=== PATIENT | female | born 1965 | race Caucasian/White ===

== ENCOUNTER 2016-08-10 15:02 | Emergency (ER) | payer BC ==
[2016-08-10] MEDS ORDERED: ACETAMINOPHEN 325 MG TABLET PO ONE (15:52)
--- NOTE | 2016-08-10 15:52 | ER Document Report ---
ED Medical Screen (RME) - General Stated Complaint: FEVER Notes: saturday onset ear pain, cough, congestion, fever, body aches decreased urine output HTN, HLD, DM, chronic back pain I have greeted and performed a rapid initial assessment of this patient. A comprehensive ED assessment and evaluation of the patient, analysis of test results and completion of the medical decision making process will be conducted by additional ED providers. TRAVEL OUTSIDE OF THE [place] IN LAST 30 DAYS: No - Related Data Allergies/Adverse Reactions: succinylcholine [Succinylcholine] Allergy (Severe, Verified 04/20/15 19:00) Coma Past Medical History - Past Medical History Cardiac Medical History: Reports: Hx Coronary Artery Disease - MED, Hx Hypertension Denies: Hx Heart Attack Pulmonary Medical History: Denies: Hx Asthma, Hx Bronchitis, Hx COPD, Hx Pneumonia Neurological Medical History: Denies: Hx Cerebrovascular Accident, Hx Seizures Endocrine Medical History: Reports: Hx Diabetes Mellitus Type 2 GI Medical History: Reports: Hx Hiatal Hernia Musculoskeltal Medical History: Reports Hx Arthritis Past Surgical History: Reports: Hx Cholecystectomy, Hx Hysterectomy - Immunizations Hx Diphtheria, Pertussis, Tetanus Vaccination: Yes Physical Exam - Vital signs Vitals: Temp Pulse Resp BP 102.4 F H 88 24 H 149/67 H 08/10/16 15:31 08/10/16 15:31 08/10/16 15:31 08/10/16 15:31 Course - Vital Signs Vital signs: Temp Pulse Resp BP Pulse Ox 102.4 F H 88 24 H 149/67 H 08/10/16 15:31 08/10/16 15:31 08/10/16 15:31 08/10/16 15:31
[2016-08-10 16:35] LABS: ABSOLUTE LYMPHOCYTES (AUTO) 1.2 10^3/uL (0.5-4.7); BASOPHILS % (AUTO) 0.2 % (0-2); EOSINOPHILS % (AUTO) 0.5 % (0-6); HEMATOCRIT 42.5 % (36.0-47.0); HEMOGLOBIN 14.4 g/dL (12.0-15.5); HGB HCT DIFFERENCE 0.7; LYMPHOCYTES % (AUTO) 11.9 % (13-45); MEAN CORPUSCULAR HEMOGLOBIN 31.1 pg (27.0-33.4); MEAN CORPUSCULAR HGB CONC 33.8 g/dL (32.0-36.0); MEAN CORPUSCULAR VOLUME 92 fl (80-97); MONOCYTES % (AUTO) 9.5 % (3-13); RED BLOOD COUNT 4.62 10^6/uL (3.72-5.28); RED CELL DISTRIBUTION WIDTH 14.7 % (11.5-14.0); SEGMENTED NEUTROPHILS % (AUTO) 77.9 % (42-78); WHITE BLOOD COUNT 10.2 10^3/uL (4.0-10.5)
[2016-08-10 16:46] LABS: ALANINE AMINOTRANSFERASE 32 U/L (9-52); ALBUMIN 4.1 g/dL (3.5-5.0); ALKALINE PHOSPHATASE 70 U/L (38-126); ANION GAP 12 (5-19); ASPARTATE AMINO TRANSFERASE 21 U/L (14-36); BILIRUBIN,TOTAL 0.5 mg/dL (0.2-1.3); BLOOD UREA NITROGEN 33 mg/dL (7-20); CALCIUM 9.9 mg/dL (8.4-10.2); CARBON DIOXIDE 28 mmol/L (22-30); CHLORIDE 99 mmol/L (98-107); CREATININE RESULT 1.11 mg/dL (0.52-1.25); GLUCOSE 127 mg/dL (75-110); POTASSIUM 4.2 mmol/L (3.6-5.0); SODIUM 138.6 mmol/L (137-145); TOTAL PROTEIN 7.1 g/dL (6.3-8.2)
[2016-08-10 17:11] LABS: APPEARANCE,URINE CLOUDY; BILIRUBIN,URINE NEGATIVE (NEGATIVE); GLUCOSE, URINE NEGATIVE (NEGATIVE); KETONES,URINE NEGATIVE (NEGATIVE); LEUKOCYTE ESTERASE,URINE NEGATIVE (NEGATIVE); NITRITE,URINE NEGATIVE (NEGATIVE); PROTEIN,URINE 100 mg/dL (NEGATIVE); URINE SPECIFIC GRAVITY 1.028; UROBILINOGEN,URINE NEGATIVE mg/dL (<2.0)
[2016-08-10] MEDS ORDERED: LIDOCAINE 1% INJ-PF (10 MG/ML) 30 ML SDV INFIL ONE (17:30)
[2016-08-10] MEDS ORDERED: CEFTRIAXONE INJ 500 MG VIAL IM ONE (17:30)
--- NOTE | 2016-08-10 17:34 | ER Document Report ---
ED Flu Like - General Chief Complaint: Flu Symptoms Stated Complaint: FEVER Time seen by provider: 17:31 Mode of Arrival: Ambulatory Information source: Patient, Friend TRAVEL OUTSIDE OF THE [place] IN LAST 30 DAYS: No - HPI Patient complains to provider of: fever/cough Onset: Other - pt. with recurrent fever the past several days up to 102 with cough productive of yellow sputum. Pt. continues to smoke. - Related Data Allergies/Adverse Reactions: succinylcholine [Succinylcholine] Allergy (Severe, Verified 08/10/16 15:49) Coma Past Medical History - General Information source: Patient - Social History Smoking Status: Current Every Day Smoker Cigarette use (# per day): Yes Chew tobacco use (# tins/day): No Smoking Education Provided: Yes Frequency of alcohol use: None Drug Abuse: None Family History: Reviewed & Not Pertinent Patient has suicidal ideation: No Patient has homicidal ideation: No - Past Medical History Cardiac Medical History: Reports: Hx Coronary Artery Disease - MED, Hx Hypertension Denies: Hx Heart Attack Pulmonary Medical History: Denies: Hx Asthma, Hx Bronchitis, Hx COPD, Hx Pneumonia Neurological Medical History: Denies: Hx Cerebrovascular Accident, Hx Seizures Endocrine Medical History: Reports: Hx Diabetes Mellitus Type 2 Renal/ Medical History: Denies: Hx Peritoneal Dialysis GI Medical History: Reports: Hx Hiatal Hernia Musculoskeltal Medical History: Reports Hx Arthritis Past Surgical History: Reports: Hx Cholecystectomy, Hx Hysterectomy - Immunizations Hx Diphtheria, Pertussis, Tetanus Vaccination: Yes Review of Systems - Review of Systems Constitutional: See HPI, Fever EENT: No symptoms reported Cardiovascular: No symptoms reported Respiratory: See HPI, Cough Gastrointestinal: No symptoms reported Physical Exam - Vital signs Vitals: Temp Pulse Resp BP 102.4 F H 88 24 H 149/67 H 08/10/16 15:31 08/10/16 15:31 08/10/16 15:31 08/10/16 15:31 - General General appearance: Appears well In distress: None - HEENT Head: Normocephalic Pharynx: Normal Neck: Normal - Respiratory Respiratory status: No respiratory distress Chest status: Nontender Breath sounds: Normal - Cardiovascular Rhythm: Regular Heart sounds: Normal auscultation - Abdominal Inspection: Normal Tenderness: Nontender Course - Re-evaluation Re-evalutation: 08/10/16 18:02 pt felt better after IM Rocephin -- Expressed desire to go home with friend 08/10/16 18:03 I have urged her to have a repeat CXR next week to make sure this infiltrate has cleared. She is agreeable to this - Vital Signs Vital signs: Temp Pulse Resp BP Pulse Ox 102.4 F H 88 24 H 149/67 H 08/10/16 15:31 08/10/16 15:31 08/10/16 15:31 08/10/16 15:31 - Laboratory Result Diagrams: 08/10/16 16:10 08/10/16 16:10 Laboratory results interpreted by me: 08/10/16 08/10/16 08/10/16 16:10 16:10 16:39 RDW 14.7 H Lymphocytes % 11.9 L BUN 33 H Est GFR (Non-Af Amer) 51 L Glucose 127 H Urine Protein 100 H Urine Blood SMALL H - Diagnostic Test Radiology reviewed: Reports reviewed - RUL infiltrate Discharge - Discharge Clinical Impression: Pneumonia Qualifiers: Pneumonia type: due to unspecified organism Laterality: right Lung location: upper lobe of lung Qualified Code(s): J18.1 - Lobar pneumonia, unspecified organism Condition: Stable Disposition: HOME, SELF-CARE Instructions: Acetaminophen Additional Instructions: rest, take meds as prescribed, return if worse Prescriptions: Azithromycin [Zithromax Tri-Jerson] 500 mg PO DAILY #1 pkg
[2016-08-10 18:25] VITALS: BP 148/69
== END 2016-08-10 18:25 | disposition home or self-care (01) ==
LOC: ER 15:02
DX: J18.1 Lobar pneumonia, unspecified organism (principal); R50.9 Fever, unspecified; R05 Cough; F17.210 Nicotine dependence, cigarettes, uncomplicated; I25.10 Atherosclerotic heart disease of native coronary artery without angina pectoris; I10 Essential (primary) hypertension; E11.9 Type 2 diabetes mellitus without complications
CPT/HCPCS: 99283; 36415; 85025; 80053; 81001; 87804; 71020; J3490; J0696

== ENCOUNTER 2016-08-23 19:18 | Emergency (ER) | payer BC ==
--- NOTE | 2016-08-23 21:16 | ER Document Report ---
ED Medical Screen (RME) - General Chief Complaint: Abdominal Pain Stated Complaint: RECTAL BLEEDING Mode of Arrival: Ambulatory Information source: Patient Notes: 51-year-old female presents to the emergency department complaining of mid upper abd pain radiating to bilateral mid abd over the last 3 days. Reports diagnosed and treated for pneumonia approximately 2 weeks ago. Also reports bleeding from hemorrhoids. Denies fever. I have greeted and performed a rapid initial assessment of this patient. A comprehensive ED assessment and evaluation of the patient, analysis of test results and completion of the medical decision making process will be conducted by additional ED providers. TRAVEL OUTSIDE OF THE [place] IN LAST 30 DAYS: No - Related Data Allergies/Adverse Reactions: succinylcholine [Succinylcholine] Allergy (Severe, Verified 08/10/16 15:49) Coma Past Medical History - Social History Chew tobacco use (# tins/day): No Frequency of alcohol use: None Drug Abuse: None - Past Medical History Cardiac Medical History: Reports: Hx Coronary Artery Disease - MED, Hx Hypertension Denies: Hx Heart Attack Pulmonary Medical History: Denies: Hx Asthma, Hx Bronchitis, Hx COPD, Hx Pneumonia Neurological Medical History: Denies: Hx Cerebrovascular Accident, Hx Seizures Endocrine Medical History: Reports: Hx Diabetes Mellitus Type 2 Renal/ Medical History: Denies: Hx Peritoneal Dialysis GI Medical History: Reports: Hx Hiatal Hernia Musculoskeltal Medical History: Reports Hx Arthritis Past Surgical History: Reports: Hx Cholecystectomy, Hx Hysterectomy - Immunizations Hx Diphtheria, Pertussis, Tetanus Vaccination: Yes Physical Exam - Vital signs Vitals: Temp Pulse Resp BP Pulse Ox 98.0 F 74 18 177/82 H 95 08/23/16 20:45 08/23/16 20:45 08/23/16 20:45 08/23/16 20:45 08/23/16 20:45 - General General appearance: Appears well, Alert In distress: None - Respiratory Respiratory status: No respiratory distress - Cardiovascular Rhythm: Regular Pulses: Normal: Radial Normal capillary refill: Yes Course - Vital Signs Vital signs: Temp Pulse Resp BP Pulse Ox 98.0 F 74 18 177/82 H 95 08/23/16 20:45 08/23/16 20:45 08/23/16 20:45 08/23/16 20:45 08/23/16 20:45
[2016-08-23 21:56] LABS: ABSOLUTE BASOPHILS # (AUTO) 0.1 10^3/uL (0.0-0.2); ABSOLUTE EOSINOPHILS # (AUTO) 0.2 10^3/uL (0.0-0.6); ABSOLUTE LYMPHOCYTES (AUTO) 2.1 10^3/uL (0.5-4.7); ABSOLUTE MONOCYTES (AUTO) 0.5 10^3/uL (0.1-1.4); ABSOLUTE NEUT (AUTO) 4.5 10^3/uL (1.7-8.2); EOSINOPHILS % (AUTO) 2.1 % (0-6); HEMATOCRIT 43.6 % (36.0-47.0); HEMOGLOBIN 14.6 g/dL (12.0-15.5); HGB HCT DIFFERENCE 0.2; LYMPHOCYTES % (AUTO) 28.9 % (13-45); MEAN CORPUSCULAR HEMOGLOBIN 30.8 pg (27.0-33.4); MEAN CORPUSCULAR HGB CONC 33.6 g/dL (32.0-36.0); MEAN CORPUSCULAR VOLUME 92 fl (80-97); MONOCYTES % (AUTO) 7.3 % (3-13); RED BLOOD COUNT 4.74 10^6/uL (3.72-5.28); RED CELL DISTRIBUTION WIDTH 14.8 % (11.5-14.0); SEGMENTED NEUTROPHILS % (AUTO) 60.7 % (42-78); WHITE BLOOD COUNT 7.4 10^3/uL (4.0-10.5)
[2016-08-23 22:07] LABS: APPEARANCE,URINE CLEAR; BILIRUBIN,URINE NEGATIVE (NEGATIVE); GLUCOSE, URINE NEGATIVE (NEGATIVE); KETONES,URINE NEGATIVE (NEGATIVE); LEUKOCYTE ESTERASE,URINE NEGATIVE (NEGATIVE); NITRITE,URINE NEGATIVE (NEGATIVE); PROTEIN,URINE NEGATIVE (NEGATIVE); URINE SPECIFIC GRAVITY 1.013; UROBILINOGEN,URINE NEGATIVE mg/dL (<2.0)
[2016-08-23 22:20] LABS: ALANINE AMINOTRANSFERASE 30 U/L (9-52); ALBUMIN 4.4 g/dL (3.5-5.0); ALKALINE PHOSPHATASE 78 U/L (38-126); ANION GAP 11 (5-19); ASPARTATE AMINO TRANSFERASE 29 U/L (14-36); BILIRUBIN,TOTAL 0.5 mg/dL (0.2-1.3); BLOOD UREA NITROGEN 24 mg/dL (7-20); CALCIUM 10.4 mg/dL (8.4-10.2); CARBON DIOXIDE 29 mmol/L (22-30); CHLORIDE 99 mmol/L (98-107); CREATINE KINASE 52 U/L (30-135); CREATININE RESULT 1.18 mg/dL (0.52-1.25); GLUCOSE 93 mg/dL (75-110); LIPASE 168.8 U/L (23-300); POTASSIUM 4.5 mmol/L (3.6-5.0); SODIUM 138.8 mmol/L (137-145); TOTAL PROTEIN 7.5 g/dL (6.3-8.2)
[2016-08-23 22:31] LABS: CREATINE KINASE MB 0.22 ng/mL (<4.55)
[2016-08-23 22:32] LABS: TROPONIN I < 0.012 ng/mL
[2016-08-24] MEDS ORDERED: ONDANSETRON 4 MG TAB.RAPDIS PO ONE (00:57)
[2016-08-24] MEDS ORDERED: OXYCODONE-ACETAMINOPHEN 5-325 MG TABLET PO ONE (00:57)
[2016-08-24] MEDS ORDERED: FAMOTIDINE 20 MG TABLET PO ONE (00:57)
[2016-08-24] MEDS ORDERED: SUCRALFATE 1 GM TABLET PO ONE (00:57)
--- NOTE | 2016-08-24 01:02 | ER Document Report ---
ED General - General Chief Complaint: Abdominal Pain Stated Complaint: RECTAL BLEEDING Mode of Arrival: Ambulatory Notes: Patient is a 51-year-old female that comes emergency department for chief complaint of pain in her upper abdomen for 1 week, she states the pain is a "burning pain" which is occasionally sharp, she states it is worse with eating and she has not been able to eat much over the past couple of days. She reports some nausea but denies vomiting. Patient states she has had a cholecystectomy, she was on recent antibiotics for pneumonia, she has had some diarrhea and this is bothering her hemorrhoids with occasional spots of blood in stool. She denies dark stools. She smokes. TRAVEL OUTSIDE OF THE [place] IN LAST 30 DAYS: No - Related Data Allergies/Adverse Reactions: succinylcholine [Succinylcholine] Allergy (Severe, Verified 08/10/16 15:49) Coma Past Medical History - General Information source: Patient - Social History Smoking Status: Current Every Day Smoker Chew tobacco use (# tins/day): No Frequency of alcohol use: None Drug Abuse: None Lives with: Family Family History: Reviewed & Not Pertinent Patient has suicidal ideation: No Patient has homicidal ideation: No - Past Medical History Cardiac Medical History: Reports: Hx Coronary Artery Disease - MED, Hx Hypertension Denies: Hx Heart Attack Pulmonary Medical History: Denies: Hx Asthma, Hx Bronchitis, Hx COPD, Hx Pneumonia Neurological Medical History: Denies: Hx Cerebrovascular Accident, Hx Seizures Endocrine Medical History: Reports: Hx Diabetes Mellitus Type 2 Renal/ Medical History: Denies: Hx Peritoneal Dialysis GI Medical History: Reports: Hx Hiatal Hernia Musculoskeltal Medical History: Reports Hx Arthritis Past Surgical History: Reports: Hx Cholecystectomy, Hx Hysterectomy - Immunizations Hx Diphtheria, Pertussis, Tetanus Vaccination: Yes Review of Systems - Review of Systems Constitutional: No symptoms reported EENT: No symptoms reported Cardiovascular: See HPI Respiratory: See HPI Gastrointestinal: See HPI Genitourinary: No symptoms reported Female Genitourinary: No symptoms reported Musculoskeletal: No symptoms reported Skin: No symptoms reported Hematologic/Lymphatic: No symptoms reported Neurological/Psychological: No symptoms reported Physical Exam - Vital signs Vitals: Temp Pulse Resp BP Pulse Ox 98.0 F 74 18 177/82 H 95 08/23/16 20:45 08/23/16 20:45 08/23/16 20:45 08/23/16 20:45 08/23/16 20:45 Interpretation: Normal - General General appearance: Appears well, Alert In distress: None - HEENT Head: Normocephalic, Atraumatic Eyes: Normal Pupils: PERRL - Respiratory Respiratory status: No respiratory distress Chest status: Nontender. No: Tender Breath sounds: Normal Chest palpation: Normal - Cardiovascular Rhythm: Regular Heart sounds: Normal auscultation Murmur: No - Abdominal Inspection: Normal Distension: No distension Bowel sounds: Normal Tenderness: Tender - Tender to the left upper quadrant and slightly tender in the epigastric area Organomegaly: No organomegaly - Back Back: Normal, Nontender. No: Tender - Extremities General upper extremity: Normal inspection, Nontender, Normal color, Normal ROM , Normal temperature General lower extremity: Normal inspection, Nontender, Normal color, Normal ROM , Normal temperature, Normal weight bearing. 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 EKG with no acute findings, cardiac enzymes negative. CBC, lipase unremarkable. Chemistry shows borderline renal functioning with normal creatinine. Patient does have a significant amount of left upper quadrant pain and some epigastric pain on examination, otherwise her abdomen is unremarkable, patient complaining of burning pain in her upper abdomen after eating, patient is a smoker. Concerning for worsening gastritis. Patient placed on medications for this, given specific instructions for treatment of this, given follow-up recommendations and return precautions. Patient states understanding and agreement. - Vital Signs Vital signs: Temp Pulse Resp BP Pulse Ox 98.0 F 76 16 105/89 H 96 08/24/16 01:49 08/24/16 01:49 08/24/16 01:49 08/24/16 01:49 08/24/16 01:49 - Laboratory Result Diagrams: 08/23/16 21:15 08/23/16 21:15 Laboratory results interpreted by me: 08/23/16 08/23/16 21:15 21:15 RDW 14.8 H BUN 24 H Est GFR ( Amer) 58 L Est GFR (Non-Af Amer) 48 L Calcium 10.4 H Discharge - Discharge Clinical Impression: Upper abdominal pain Condition: Stable Disposition: HOME, SELF-CARE Additional Instructions: Examination symptoms are concerning for inflammation of your stomach and upper intestines, please take the omeprazole and Carafate as directed, in addition to this take the pain medication if needed and stool softener with it. Avoid alcohol, smoking, high levels of caffeine, anti-inflammatories (such as ibuprofen, aspirin, etc), and avoid spicy food. Follow-up with your primary care within a week. Return immediately for any concerning worsening symptoms including severe abdominal pain, vomiting, vomiting blood, black stools, or any other concerning symptoms. Prescriptions: Docusate Sodium [Colace 100 mg Capsule] 100 mg PO DAILY #30 capsule Omeprazole 40 mg PO DAILY #30 capsule. Oxycodone HCl/Acetaminophen [Percocet 5-325 mg Tablet] 1 - 2 tab PO Q4H PRN #15 tablet PRN Reason: Sucralfate [Carafate 1 gm Tablet] 1 gm PO QID #40 tablet
[2016-08-24 02:12] VITALS: BP 105/89
--- NOTE | 2016-08-24 16:55 | EKG REPORT ---
SEVERITY:- NORMAL ECG - SINUS RHYTHM : Confirmed by: Chela Allen MD 24-Aug-2016 16:53:56
== END 2016-08-24 02:12 | disposition home or self-care (01) ==
LOC: ER 19:18
DX: R10.13 Epigastric pain (principal); R10.12 Left upper quadrant pain; J98.11 Atelectasis; R11.0 Nausea; R19.7 Diarrhea, unspecified; K92.1 Melena; I25.10 Atherosclerotic heart disease of native coronary artery without angina pectoris; I10 Essential (primary) hypertension; E11.9 Type 2 diabetes mellitus without complications; F17.200 Nicotine dependence, unspecified, uncomplicated; Z90.710 Acquired absence of both cervix and uterus; Z88.8 Allergy status to other drugs, medicaments and biological substances; Z90.49 Acquired absence of other specified parts of digestive tract; Z87.01 Personal history of pneumonia (recurrent)
CPT/HCPCS: 93005; 99284; 36415; 82553; 82550; 83690; 85025; 80053; 81001; 84484; 71020; 93010; S0119

== ENCOUNTER → 2016-08-31 | Outpatient (CLI) | payer BC | LOC: OD 10:25 | PROVIDERS: ATTEND Family Medicine | DX: J18.9 Pneumonia, unspecified organism (principal) | CPT/HCPCS: 71020 ==

== ENCOUNTER 2016-09-14 07:26 | Day surgery (SDC) | payer BC ==
[2016-09-14] MEDS ORDERED: NALOXONE HCL INJ/PF 0.4 MG/1 ML SDV ONE (07:56)
[2016-09-14] MEDS ORDERED: PROMETHAZINE HCL INJ 25 MG/1 ML VIAL ONE (07:56)
[2016-09-14] MEDS ORDERED: DIPHENHYDRAMINE HCL 50 MG/ML VIAL ONE (07:56)
[2016-09-14] MEDS ORDERED: ONDANSETRON HCL INJ/PF 4 MG/2 ML SDV ONE (07:56)
[2016-09-14] MEDS ORDERED: FENTANYL CITRATE INJ/PF 100 MCG/2 ML AMPUL ONE (07:57)
[2016-09-14] MEDS ORDERED: MIDAZOLAM 2 MG/2 ML INJ ONE (07:57)
[2016-09-14] MEDS ORDERED: EPINEPHRINE INJ 1 MG/10 ML DISP.SYRIN ONE (07:58)
[2016-09-14] MEDS ORDERED: FLUMAZENIL INJ 0.5 MG/5 ML VIAL IV ONE (07:58)
[2016-09-14] MEDS ORDERED: GLUCAGON,HUMAN RECOMB 1 MG INJ ONE (07:58)
[2016-09-14] MEDS: MIDAZOLAM 2 MG/2 ML INJ ONE ×2 (08:11→08:15)
--- NOTE | 2016-09-14 08:28 | Operative Report ---
Operative Report DATE OF SURGERY: 09/14/16 Operative Report: The risks benefits and alternatives of the procedure explained to the patient in detail and informed consent is obtained that GIF Olympus video scope was inserted into the patient's mouth and hypopharynx the esophagus is identified intubated and insufflated the scope was then advanced through the esophagus stomach and duodenum retroflexion maneuver is done the esophagus stomach and first and second portions of the duodenum examined PREOPERATIVE DIAGNOSIS: Epigastric pain POSTOPERATIVE DIAGNOSIS: Severe gastritis, biopsies obtained rule out Helicobacter pylori. Esophagitis versus Messina's; favor the latter, biopsies to confirm OPERATION: EGD with biopsy SURGEON: VIKRAM FRANCISCO ANESTHESIA: Moderate Sedation - 4 mg of Versed, 75 g of fentanyl. Conscious sedation monitoring time 15 minutes. TISSUE REMOVED OR ALTERED: Gastric specimen obtained COMPLICATIONS: None. ESTIMATED BLOOD LOSS: none. INTRAOPERATIVE FINDINGS: As noted above, patent esophagus. First and second portions of the duodenum normal PROCEDURE: Patient tolerated the procedure well. No immediate postprocedure complications are noted. Patient is discharged in good condition. Discharge date 09/14/2016. Discharge diet: Regular. Discharge activity: Regular. 2-3 week follow-up to discuss findings. Patient is instructed to call the office or proceed to the emergency room should there be any further problems or questions. We'll await on biopsies.
[2016-09-14 10:05] VITALS: BP 99/56
== END 2016-09-14 09:25 | disposition home or self-care (01) ==
LOC: END 07:26
PROVIDERS: ATTEND Internal Medicine Gastroenterology
PROC: 0DB68ZX Excision of Stomach, Via Natural or Artificial Opening Endoscopic, Diagnostic (ICD-10-PCS; 2016-09-14)
PROC: 0DB48ZX Excision of Esophagogastric Junction, Via Natural or Artificial Opening Endoscopic, Diagnostic (ICD-10-PCS; principal; 2016-09-14 08:00)
DX: K31.7 Polyp of stomach and duodenum (principal); E78.5 Hyperlipidemia, unspecified; E11.9 Type 2 diabetes mellitus without complications; I10 Essential (primary) hypertension; F17.210 Nicotine dependence, cigarettes, uncomplicated; Z79.4 Long term (current) use of insulin; Z79.899 Other long term (current) drug therapy; Z86.010 Personal history of colon polyps
CPT/HCPCS: 43239; 82962; 88342 ×2; 88305 ×2; J2250; J3010; J0171; J1200; J1610; J2310; J2405; J2550; J3490

== ENCOUNTER 2016-09-28 11:00 | Day surgery (SDC) | payer BC ==
[2016-09-28] MEDS ORDERED: DIPHENHYDRAMINE HCL 50 MG/ML VIAL ONE (11:23)
[2016-09-28] MEDS ORDERED: NALOXONE HCL INJ/PF 0.4 MG/1 ML SDV ONE (11:23)
[2016-09-28] MEDS ORDERED: ONDANSETRON HCL INJ/PF 4 MG/2 ML SDV ONE (11:23)
[2016-09-28] MEDS ORDERED: PROMETHAZINE HCL INJ 25 MG/1 ML VIAL ONE (11:23)
[2016-09-28] MEDS ORDERED: GLUCAGON,HUMAN RECOMB 1 MG INJ ONE (11:24)
[2016-09-28] MEDS ORDERED: EPINEPHRINE INJ 1 MG/10 ML DISP.SYRIN ONE (11:24)
[2016-09-28] MEDS ORDERED: FLUMAZENIL INJ 0.5 MG/5 ML VIAL IV ONE (11:24)
[2016-09-28] MEDS: MIDAZOLAM 2 MG/2 ML INJ ONE ×3 (11:53→12:04)
[2016-09-28] MEDS: FENTANYL CITRATE INJ/PF 100 MCG/2 ML AMPUL ONE ×2 (11:55→12:00)
--- NOTE | 2016-09-28 12:06 | Operative Report ---
Operative Report DATE OF SURGERY: 09/28/16 Operative Report: The risks benefits and alternatives of the procedure explained to the patient in detail and informed consent is obtained that GIF Olympus video scope was inserted into the patient's mouth and hypopharynx the esophagus is identified intubated and insufflated the scope was then advanced through the esophagus stomach and duodenum retroflexion maneuver is done the esophagus stomach and first and second portions of the duodenum examined PREOPERATIVE DIAGNOSIS: Messina's esophagus POSTOPERATIVE DIAGNOSIS: Messina's esophagus status post ablation. Gastritis OPERATION: EGD with ablation SURGEON: VIKRAM FRANCISCO ANESTHESIA: Moderate Sedation - 6 mg of Versed, 100 g of fentanyl. Conscious sedation monitoring 30 minutes TISSUE REMOVED OR ALTERED: None. COMPLICATIONS: None. ESTIMATED BLOOD LOSS: none. INTRAOPERATIVE FINDINGS: Messina's esophagus is noted. Gastritis is noted. PROCEDURE: Patient tolerated the procedure well. No immediate postprocedure complications are noted. Patient is discharged in good condition. Discharge date 09/28/2016. Discharge diet: Regular. Discharge activity: Regular. 2-3 week follow-up to discuss findings. Patient is instructed to call the office or proceed to the emergency room should there be any further problems or questions.
[2016-09-28 13:29] VITALS: BP 117/68
== END 2016-09-28 13:30 | disposition home or self-care (01) ==
LOC: END 11:00
PROVIDERS: ATTEND Internal Medicine Gastroenterology
PROC: 0D558ZZ Destruction of Esophagus, Via Natural or Artificial Opening Endoscopic (ICD-10-PCS; principal; 2016-09-28 12:00)
DX: K22.719 Barrett's esophagus with dysplasia, unspecified (principal); K29.30 Chronic superficial gastritis without bleeding; K59.09 Other constipation; E78.2 Mixed hyperlipidemia; E11.9 Type 2 diabetes mellitus without complications; I10 Essential (primary) hypertension; F17.210 Nicotine dependence, cigarettes, uncomplicated; Z79.84 Long term (current) use of oral hypoglycemic drugs; Z79.899 Other long term (current) drug therapy
CPT/HCPCS: 43270; 82962; J2250; J0171; J3010; J1200; J1610; J2310; J2405; J2550; J3490

== ENCOUNTER → 2016-10-30 | Outpatient (CLI) | payer BC | LOC: RAD 12:10 | PROVIDERS: ATTEND Pain Medicine Pain Medicine | DX: M48.06 Spinal stenosis, lumbar region (principal) | CPT/HCPCS: 72148 ==

== ENCOUNTER → 2016-12-10 | Outpatient (CLI) | payer BC ==
--- NOTE | 2016-12-10 16:34 | RADIOLOGY REPORT (SQ) ---
EXAM DESCRIPTION: CT LUMBAR SPINE WITHOUT COMPLETED DATE/TIME: 12/10/2016 1:06 pm REASON FOR STUDY: LUMBAR RADICULOPATHY M54.16 RADICULOPATHY, LUMBAR REGION COMPARISON: MRI dated 10/30/2016 and 01/27/2016. TECHNIQUE: Axial images acquired through the lumbar spine without intravenous contrast. Images revi ewed with lung, soft tissue and bone windows. Reconstructed coronal and sagittal MPR images reviewed . All images stored on PACS. All CT scanners at this facility use dose modulation, iterative reconstruction, and/or weight based d osing when appropriate to reduce radiation dose to as low as reasonably achievable (ALARA). [facility]: Dose Right [facility]: CareDose [facility]: Dose Right [facility]: Teradose 4D [facility]: [employer] RADIATION DOSE: Up-to-date CT equipment and radiation dose reduction techniques were employed. CTDIv ol: 23.8 mGy. DLP: 676 mGy-cm. mGy. LIMITATIONS: None. FINDINGS: SEGMENTATION: Normal. No transitional anatomy. ALIGNMENT: Normal. VERTEBRAL BODIES: No fractures. No dislocation. No acute findings. DISCS: Prominent disc space narrowing with vacuum change and endplate sclerosis at L3-L4. Mild diffu se posterior annular bulge and osteophytes and facet arthropathy resulting in mild-moderate spinal st enosis. Fusion at the L4-L5 disc level. Disc space narrowing with vacuum change at L5-S1. Mild dif fuse posterior bulge and osteophytes with mild facet arthropathy resulting in mild spinal stenosis. PEDICLES, TRANSVERSE PROCESSES: No fractures. No dislocation. No acute findings. FACETS, POSTERIOR ELEMENTS: Laminectomy changes at L4-L5. HARDWARE: Posterior hardware at L4 and L5. VISUALIZED RIBS: No fractures. SOFT TISSUES: No significant or acute finding in adjacent soft tissues. OTHER: Bony defect in the posterior right iliac bone. This appears chronic and may be postoperative. IMPRESSION: 1. SURGICAL CHANGES AT L4-L5 WITH DISC FUSION, POSTERIOR HARDWARE AND LAMINECTOMY. 2. DEGENERATIVE DISC DISEASE AT L3-L4 AND L5-S1 DESCRIBED ABOVE. FINDINGS ARE MORE PRONOUNCED AT L3-L4. TECHNICAL DOCUMENTATION: JOB ID: [id number] Quality ID # [id number]: Final reports with documentation of one or more dose reduction techniques (e.g., Au tomated exposure control, adjustment of the mA and/or kV according to patient size, use of iterative reconstruction technique) 2010 [employer]- All Rights Reserved
--- NOTE | 2016-12-10 16:36 | RADIOLOGY REPORT (SQ) ---
EXAM DESCRIPTION: L SPINE W/FLEX/EXT COMPLETED DATE/TIME: 12/10/2016 1:35 pm REASON FOR STUDY: LUMBAR RADICULOPATHY M54.16 RADICULOPATHY, LUMBAR REGION COMPARISON: 12/05/2012. NUMBER OF VIEWS: Four view. TECHNIQUE: AP and lateral views of the lumbar spine with flexion and extension. LIMITATIONS: None. FINDINGS: MINERALIZATION: Normal. SEGMENTATION: Normal. No transitional anatomy. ALIGNMENT: S-shaped scoliosis. FLEXION/EXTENSION: No instability. VERTEBRAE: Maintained height. No fracture or worrisome bone lesion. DISCS: Marked disc space narrowing with endplate sclerosis and osteophytes at L3-L4. Moderate disc s pace narrowing at L5-S1. POSTERIOR ELEMENTS: Laminectomy changes at L4-L 5. Otherwise intact. HARDWARE: Disc hardware and posterior hardware at L4-L5. OTHER: No other significant finding. IMPRESSION: SCOLIOSIS WITH CHRONIC DEGENERATIVE DISC DISEASE DESCRIBED. SURGICAL CHANGES AT L4-L 5. NO INSTABILITY ON FLEXION/EXTENSION. TECHNICAL DOCUMENTATION: JOB ID: [id number]- All Rights Reserved
== END ==
LOC: RAD 12:40
PROVIDERS: ATTEND Specialist
DX: M51.16 Intervertebral disc disorders with radiculopathy, lumbar region (principal)
CPT/HCPCS: 72114; 72131

== ENCOUNTER 2017-01-07 09:56 | Day surgery (SDC) | payer MEDICARE, BC ==
[~2017-01-07 09:56] MED LIST: PROPOFOL INJ 200 MG/20 ML VIAL IV ONE
[2017-01-07] MEDS ORDERED: SIMETHICONE 80 MG TAB.CHEW PO ONE (11:33)
[2017-01-07] MEDS ORDERED: SIMETHICONE 80 MG TAB.CHEW ONE (11:34)
[2017-01-07 11:59] VITALS: BP 110/50
--- NOTE | 2017-01-07 13:14 | Operative Report ---
Operative Report DATE OF SURGERY: 01/07/17 Operative Report: The risks, benefits and alternatives of the procedure including risks of bleeding, perforation requiring surgery are explained to the patient detail and informed consent is obtained. Patient was brought back to the endoscopy suite and placed in the left, lateral decubital position. Timeout was called. Propofol medications administered. A rectal examination was done which did not reveal any masses, tears or fissures. An Olympus videoscope was inserted into the patient's rectum. The scope was then carefully advanced all the way to the cecum. The cecum was identified by the usual anatomical landmarks including the ileocecal valve, and the appendiceal office. Photodocumentation was obtained. Prep is good. The scope was then pulled back via the various segments of the colon including the ascending colon, hepatic flexure, transverse colon, splenic flexure, descending colon and finding to the rectosigmoid colon. Retroflexion maneuver was performed. PREOPERATIVE DIAGNOSIS: Abdominal pain, change in bowel habits POSTOPERATIVE DIAGNOSIS: Polyp that is removed via snare polypectomy. It is somewhat of a sessile polyp and so no tissue could be obtained. It appears to be mostly ablated. Right side inflammation status post biopsy rule out lymphocytic, microscopic, collagenous colitis. Diverticulosis. Internal hemorrhoids OPERATION: Colonoscopy with snare polypectomy. Colonoscopy with biopsy SURGEON: VIKRAM FRANCISCO ANESTHESIA: LMAC TISSUE REMOVED OR ALTERED: As described above. COMPLICATIONS: None. ESTIMATED BLOOD LOSS: None. INTRAOPERATIVE FINDINGS: As described above. PROCEDURE: Patient tolerated the procedure well. No immediate postprocedure complications are noted. Patient discharged in good condition. Discharge date 01/07/2017. Discharge diet: Regular. Discharge activity: Regular. 2-3 week follow-up to discuss findings. Patient is instructed to call the office or proceed to the emergency room should there be any further problems or questions. We will wait on biopsies. 3-5 year surveillance colonoscopy.
== END 2017-01-07 11:54 | disposition home or self-care (01) ==
LOC: END 09:56
PROVIDERS: ATTEND Internal Medicine Gastroenterology
PROC: 0DBF8ZX Excision of Right Large Intestine, Via Natural or Artificial Opening Endoscopic, Diagnostic (ICD-10-PCS; principal; 2017-01-07 12:00)
PROC: 0DBJ8ZX Excision of Appendix, Via Natural or Artificial Opening Endoscopic, Diagnostic (ICD-10-PCS; 2017-01-07 12:00)
DX: K63.5 Polyp of colon (principal); K57.30 Diverticulosis of large intestine without perforation or abscess without bleeding; K52.9 Noninfective gastroenteritis and colitis, unspecified; K64.8 Other hemorrhoids; E78.2 Mixed hyperlipidemia; I10 Essential (primary) hypertension; F17.210 Nicotine dependence, cigarettes, uncomplicated; Z79.899 Other long term (current) drug therapy; Z79.84 Long term (current) use of oral hypoglycemic drugs; Z79.1 Long term (current) use of non-steroidal anti-inflammatories (NSAID)
CPT/HCPCS: 45380; 45385; 82962; 88305 ×2; A9270; J2704; 810

== ENCOUNTER → 2017-01-11 | Outpatient (CLI) | payer MEDICARE, BC ==
--- NOTE | 2017-01-11 13:58 | WOMENS IMAGING REPORT ---
EXAM DESCRIPTION: BILAT SCREENING MAMMO W/CAD COMPLETED DATE/TIME: 01/11/2017 12:40 pm REASON FOR STUDY: ROUTINE SCREENING ; Z12.31 Z12.31 ENCNTR SCREEN MAMMOGRAM FOR MALIGNANT NEOPLASM OF MACK COMPARISON: None available. TECHNIQUE: Standard craniocaudal and mediolateral oblique views of each breast recorded using [employer] acquisition. LIMITATIONS: None. FINDINGS: No masses, calcifications or architectural distortion. No areas of suspicion. Read with the assistance of CAD. .[facility] - R2 Cenova Version 1.3 .[facility] - R2 Cenova Version 1.3 .[facility] - R2 Cenova Version 2.4 .[facility] - R2 Cenova Version 2.4 .[facility] - R2 Panel Machine Operator Version 9.2 IMPRESSION: NORMAL MAMMOGRAM. BIRADS 1. BREAST DENSITY: b. There are scattered areas of fibroglandular density. BIRAD: 1 NEGATIVE RECOMMENDATION: ROUTINE SCREENING COMMENT: The patient has been notified of the results by letter per SA requirements. Additional no tification policies are in place for contacting patient with suspicious or incomplete findings. Quality ID #[id number]: The [employer] recommends an annual screening mammogram for women aged 40 years or over. This facility utilizes a reminder system to ensure that all patients receive reminder letters, and/or direct phone calls for appointments. This includes reminders for routine scr eening mammograms, diagnostic mammograms, or other Breast Imaging Interventions when appropriate. Th is patient will be placed in the appropriate reminder system. The [employer] (ACR) has developed recommendations for screening MRI of the breast s in certain patient populations, to be used in conjunction with mammography. Breast MRI surveillanc e may be appropriate for women with more than 20% lifetime risk of developing breast cancer as deter mined by genetic testing, significant family history of the disease, or history of mantle radiation f or Hodgkins Disease. ACR Practice Guidelines 2008. TECHNICAL DOCUMENTATION: FINDING NUMBER: (1) ASSESSMENT: (1) JOB ID: [id number] [employer]- All Rights Reserved
== END ==
LOC: WI 11:10
PROVIDERS: ATTEND Internal Medicine Gastroenterology
DX: Z12.31 Encounter for screening mammogram for malignant neoplasm of breast (principal)
CPT/HCPCS: 77067; G0202

== ENCOUNTER → 2017-02-22 | Outpatient (CLI) | payer MEDICARE, BC ==
--- NOTE | 2017-02-22 16:44 | RADIOLOGY REPORT (SQ) ---
EXAM DESCRIPTION: CERV SP 6 OR MORE COMPLETED DATE/TIME: 02/22/2017 4:09 pm REASON FOR STUDY: CERVICAL RADICULOPATHY COMPARISON: None. TECHNIQUE: AP, odontoid, oblique, lateral views in neutral flexion and extension cervical spine. Im ages saved to PACs. LIMITATIONS: None. FINDINGS: There has been prior ACD from C3-4 through C6-7. There is grade 2 spondylolisthesis C7-T1 which reduces by at 2-3 mm in the extended position. Instrumentation is intact. IMPRESSION: Mild malalignment and instability C7-T1 status post ACD C3-4 through C6-7. TECHNICAL DOCUMENTATION: JOB ID: [id number] [employer]- All Rights Reserved
--- NOTE | 2017-02-23 22:50 | RADIOLOGY REPORT (SQ) ---
EXAM DESCRIPTION: MRI CERVICAL SPINE WITHOUT COMPLETED DATE/TIME: 02/22/2017 4:58 pm REASON FOR STUDY: CERVICAL RADICULOPATHY M54.12 RADICULOPATHY, CERVICAL REGION COMPARISON: Radiographs 02/22/2017. TECHNIQUE: Sagittal and Axial imaging includes T1, T2, STIR and gradient echo sequences. LIMITATIONS: This study is significantly degraded by extensive fixation artifact, anterior fusion sp anning C3 through C7. Essentially replacing the bone of the anterior column. Resulting metallic art ifact obscures regional soft tissues and neural foramina. FINDINGS: ALIGNMENT: Normal. VERTEBRAE: Obscured by artifact. BONE MARROW: Obscured by artifact at the levels of fixation. Normal above and below this. DISCS: Obscured by artifact. Disc fixation devices throughout the levels of fusion. Disc space narr owing at C7-T1. HARDWARE: As above. CORD AND BASE OF BRAIN: Cord signal looks normal. Skullbase structures are grossly intact. SOFT TISSUES: No soft tissue masses. CENTRAL STENOSIS: None suggested. UPPER THORACIC: Incompletely imaged. No significant spinal stenosis or exit foraminal stenosis. OTHER: No other significant finding. IMPRESSION: Limiting instrumentation artifact. No gross spinal malalignment, cord compression or ov ert central stenosis. TECHNICAL DOCUMENTATION: JOB ID: [id number] [employer]- All Rights Reserved
== END ==
LOC: RAD 15:31
PROVIDERS: ATTEND Pain Medicine Pain Medicine
DX: M54.12 Radiculopathy, cervical region (principal)
CPT/HCPCS: 72050; 72141

== ENCOUNTER 2017-06-20 19:48 | Emergency (ER) | payer BC, MEDICARE ==
--- NOTE | 2017-06-20 20:40 | ER Document Report ---
ED Medical Screen (RME) - General Chief Complaint: Breast Problem Stated Complaint: BREAST PAIN Time Seen by Provider: 06/20/17 20:35 Notes: 52-year-old female coming from the top of her left breast towards the area underneath her arm and towards her back. She states the area started out as a pustule, she popped it, she states it came back and she popped it again, then several days later this started. She states she was running fevers all day yesterday. She denies having diabetes but states she takes metformin. She denies any other complaints. TRAVEL OUTSIDE OF THE [place] IN LAST 30 DAYS: No - Related Data Allergies/Adverse Reactions: succinylcholine [Succinylcholine] Allergy (Severe, Verified 01/07/17 10:06) Coma latex Allergy (Intermediate, Verified 01/07/17 10:06) Skin Redness Past Medical History - Past Medical History Cardiac Medical History: Reports: Hx Hypertension Denies: Hx Coronary Artery Disease, Hx Heart Attack Pulmonary Medical History: Denies: Hx Asthma, Hx Bronchitis, Hx COPD, Hx Pneumonia Neurological Medical History: Denies: Hx Cerebrovascular Accident, Hx Seizures Endocrine Medical History: Reports: Hx Diabetes Mellitus Type 2 Renal/ Medical History: Denies: Hx Peritoneal Dialysis GI Medical History: Reports: Hx Hiatal Hernia Musculoskeltal Medical History: Denies Hx Arthritis Past Surgical History: Reports: Hx Cholecystectomy, Hx Hysterectomy - Immunizations Hx Diphtheria, Pertussis, Tetanus Vaccination: Yes Physical Exam - Vital signs Vitals: Temp Pulse Resp BP Pulse Ox 99.5 F 85 20 136/62 H 95 06/20/17 20:06 06/20/17 20:06 06/20/17 20:06 06/20/17 20:06 06/20/17 20:06 - Skin Skin irregularity: other - Tenderness, heat, and erythema to a wide area including the top of the left breast and extending underneath the arm and towards the side/back. Questionable area of central fluctuance, no obvious induration, no obvious lymphadenopathy. Course - Vital Signs Vital signs: Temp Pulse Resp BP Pulse Ox 99.5 F 85 20 136/62 H 95 06/20/17 20:06 06/20/17 20:06 06/20/17 20:06 06/20/17 20:06 06/20/17 20:06
[2017-06-20 21:01] LABS: ABSOLUTE BASOPHILS # (AUTO) 0.1 10^3/uL (0.0-0.2); ABSOLUTE EOSINOPHILS # (AUTO) 0.1 10^3/uL (0.0-0.6); ABSOLUTE LYMPHOCYTES (AUTO) 1.5 10^3/uL (0.5-4.7); ABSOLUTE MONOCYTES (AUTO) 0.8 10^3/uL (0.1-1.4); ABSOLUTE NEUT (AUTO) 8.3 10^3/uL (1.7-8.2); EOSINOPHILS % (AUTO) 0.6 % (0-6); HEMATOCRIT 41.7 % (36.0-47.0); HEMOGLOBIN 14.1 g/dL (12.0-15.5); HGB HCT DIFFERENCE 0.6; LYMPHOCYTES % (AUTO) 14.1 % (13-45); MEAN CORPUSCULAR HEMOGLOBIN 31.2 pg (27.0-33.4); MEAN CORPUSCULAR HGB CONC 33.9 g/dL (32.0-36.0); MEAN CORPUSCULAR VOLUME 92 fl (80-97); MONOCYTES % (AUTO) 7.4 % (3-13); RED BLOOD COUNT 4.53 10^6/uL (3.72-5.28); SEGMENTED NEUTROPHILS % (AUTO) 76.9 % (42-78); WHITE BLOOD COUNT 10.7 10^3/uL (4.0-10.5)
[2017-06-20] MEDS ORDERED: CEPHALEXIN 500 MG CAPSULE PO ONE (21:06)
[2017-06-20] MEDS ORDERED: SULFAMETHOXAZOLE/TRIMETHOPRIM 800-160 MG TABLET PO ONE (21:06)
--- NOTE | 2017-06-20 21:11 | ER Document Report ---
ED General - General Chief Complaint: Breast Problem Stated Complaint: BREAST PAIN Time Seen by Provider: 06/20/17 20:35 Notes: The 2-year-old female presents with painful red lesion on her left breast that started several days ago and has been getting larger since. Complains of stinging severe pain constant. She is on chronic pain management for back pain. She has subjective fevers but is not febrile here. She has borderline diabetes on metformin. Positive armpit pain. Triage labs were ordered. TRAVEL OUTSIDE OF THE [place] IN LAST 30 DAYS: No - Related Data Allergies/Adverse Reactions: succinylcholine [Succinylcholine] Allergy (Severe, Verified 01/07/17 10:06) Coma latex Allergy (Intermediate, Verified 01/07/17 10:06) Skin Redness Past Medical History - Social History Smoking Status: Current Every Day Smoker Frequency of alcohol use: None Drug Abuse: None Family History: Reviewed & Not Pertinent Patient has suicidal ideation: No Patient has homicidal ideation: No - Past Medical History Cardiac Medical History: Reports: Hx Hypertension Denies: Hx Coronary Artery Disease, Hx Heart Attack Pulmonary Medical History: Denies: Hx Asthma, Hx Bronchitis, Hx COPD, Hx Pneumonia Neurological Medical History: Denies: Hx Cerebrovascular Accident, Hx Seizures Endocrine Medical History: Reports: Hx Diabetes Mellitus Type 2 Renal/ Medical History: Denies: Hx Peritoneal Dialysis GI Medical History: Reports: Hx Hiatal Hernia Musculoskeltal Medical History: Denies Hx Arthritis Past Surgical History: Reports: Hx Cholecystectomy, Hx Hysterectomy - Immunizations Hx Diphtheria, Pertussis, Tetanus Vaccination: Yes Review of Systems - Review of Systems Notes: REVIEW OF SYSTEMS GEN: Fevers ENT: Denies sore throat, nasal discharge, ear pain EYES: Denies blurry vision, eye pain, discharge CV: Denies chest pain, palpitations, edema RESP: Denies cough, shortness of breath, wheezing GI: Denies abdominal pain, nausea, vomiting, diarrhea MSK: Back pain SKIN: Rash on left breast LYMPH: Denies swollen glands/lymph nodes. Positive left axilla pain NEURO: Denies headache, focal weakness or numbness, dizziness PSYCH: Denies depression, suicidal or homicidal ideation PHYSICAL EXAMINATION General: No acute distress, well-nourished Head: Atraumatic, normocephalic ENT: Mouth normal, oropharynx moist, no exudates or tonsillar enlargement Eyes: Conjunctiva normal, pupils equal, lids normal Neck: No JVD, supple, no guarding CVS: Normal rate, regular rhythm, no murmurs Resp: No resp distress, equal and normal breath sounds bilaterally GI: Nondistended, soft, no tenderness to palpation, no rebound or guarding Ext: No deformities, no edema, normal range of motion in upper and lower ext Back: No CVA or midline TTP Skin: 20 cm x 15 cm area of erythema without induration or fluctuance on the left breast extending toward the axilla. No drainage. No bullae or necrosis. Lymphatic: No left axillary lymphadenopathy. No streaking. Neuro: Awake, alert. Face symmetric. GCS 15. Physical Exam - Vital signs Vitals: Temp Pulse Resp BP Pulse Ox 99.5 F 85 20 136/62 H 95 06/20/17 20:06 06/20/17 20:06 06/20/17 20:06 06/20/17 20:06 06/20/17 20:06 Course - Re-evaluation Re-evalutation: 06/20/17 21:08 Breast cellulitis with no abscess. Minimal leukocytosis. I did not think labs were necessary but they were ordered. No signs of sepsis. Oral antibiotics and follow-up. Counseled on possibility of abscess development and future need for incision and drainage. I have discussed with the patient there likely diagnosis, aftercare plan, follow-up plans and my usual and customary return precautions. They verbalized understanding of this. - Vital Signs Vital signs: Temp Pulse Resp BP Pulse Ox 99.5 F 85 20 136/62 H 95 06/20/17 20:06 06/20/17 20:06 06/20/17 20:06 06/20/17 20:06 06/20/17 20:06 - Laboratory Result Diagrams: 06/20/17 20:52 06/20/17 20:52 Laboratory results interpreted by me: 06/20/17 20:52 WBC 10.7 H RDW 16.0 H Absolute Neutrophils 8.3 H Discharge - Discharge Clinical Impression: Cellulitis of left breast Condition: Good Disposition: HOME, SELF-CARE Instructions: Cellulitis ([facility]) Additional Instructions: If the redness does not decrease in 2 days or you develop drainage or increased swelling suggestive of pus, please return to the ER as you may then require incision and drainage. Please take antibiotics exactly as prescribed and discussed with your pain management provider any need for above and beyond pain control. Prescriptions: Cephalexin Monohydrate [Keflex 500 mg Capsule] 500 mg PO Q6H 5 Days capsule Sulfamethoxazole/Trimethoprim [Bactrim 400-80 mg Tablet] 1 each PO BID #10 tablet
[2017-06-20 21:18] LABS: ANION GAP 10 (5-19); BLOOD UREA NITROGEN 18 mg/dL (7-20); CALCIUM 9.6 mg/dL (8.4-10.2); CARBON DIOXIDE 32 mmol/L (22-30); CHLORIDE 97 mmol/L (98-107); CREATININE RESULT 1.07 mg/dL (0.52-1.25); GLUCOSE 126 mg/dL (75-110); POTASSIUM 3.9 mmol/L (3.6-5.0); SODIUM 139.1 mmol/L (137-145)
[2017-06-20 21:30] VITALS: BP 133/72
== END 2017-06-20 21:30 | disposition home or self-care (01) ==
LOC: ER 19:48
DX: N61.0 Mastitis without abscess (principal); M79.629 Pain in unspecified upper arm; M54.9 Dorsalgia, unspecified; G89.29 Other chronic pain; F17.200 Nicotine dependence, unspecified, uncomplicated; I10 Essential (primary) hypertension; R73.03 Prediabetes; Z79.84 Long term (current) use of oral hypoglycemic drugs; Z91.040 Latex allergy status; Z88.8 Allergy status to other drugs, medicaments and biological substances
CPT/HCPCS: 36415; 80048; 85025; 99283

== ENCOUNTER 2017-06-23 20:28 | Inpatient (IN) | payer BC, MEDICARE ==
--- NOTE | 2017-06-23 21:42 | ER Document Report ---
ED Skin Rash/Insect Bite/Abscs - General Chief Complaint: Skin Problem Stated Complaint: SKIN PROBLEM Time Seen by Provider: 06/23/17 21:28 Mode of Arrival: Ambulatory Information source: Patient Notes: 52-year-old female presents to ED for complaint of a large abscess to her left breast around to under her arm. She states she was seen on the June 20, 2017 and placed on Keflex and Septra and only has a couple days left of that and the area has actually gotten larger and more painful. TRAVEL OUTSIDE OF THE [place] IN LAST 30 DAYS: No - HPI Patient complains to provider of: Tender/swollen area - Left breast Onset: Last week Onset/Duration: Gradual, Worse Quality of pain: Sharp, Throbbing Severity: Severe Pain Level: 5 Skin Character: Abscess - left breast Skin Temperature: Warm Quality of rash: Painful Exacerbated by: Movement Relieved by: Denies Similar symptoms previously: Yes Recently seen / treated by doctor: Yes - Related Data Allergies/Adverse Reactions: succinylcholine [Succinylcholine] Allergy (Severe, Verified 06/23/17 20:30) Coma latex Allergy (Intermediate, Verified 06/23/17 20:30) Skin Redness Past Medical History - General Information source: Patient - Social History Smoking Status: Current Every Day Smoker Cigarette use (# per day): Yes Smoking Education Provided: Yes - 3min Frequency of alcohol use: None Drug Abuse: None Lives with: Family Family History: Reviewed & Not Pertinent Patient has suicidal ideation: No Patient has homicidal ideation: No - Past Medical History Cardiac Medical History: Reports: Hx Hypertension Pulmonary Medical History: Reports: None EENT Medical History: Reports: None Neurological Medical History: Reports: None Endocrine Medical History: Reports: Hx Diabetes Mellitus Type 2 Renal/ Medical History: Reports: None Malignancy Medical History: Reports: None GI Medical History: Reports: Hx Hiatal Hernia Musculoskeltal Medical History: Reports None Skin Medical History: Reports Hx Cellulitis Psychiatric Medical History: Reports: None Traumatic Medical History: Reports: None Infectious Medical History: Reports: None Past Surgical History: Reports: Hx Cholecystectomy, Hx Hysterectomy - Immunizations Hx Diphtheria, Pertussis, Tetanus Vaccination: Yes Review of Systems - Review of Systems Constitutional: No symptoms reported EENT: No symptoms reported Cardiovascular: No symptoms reported Respiratory: No symptoms reported Gastrointestinal: No symptoms reported Genitourinary: No symptoms reported Female Genitourinary: No symptoms reported Musculoskeletal: No symptoms reported Skin: Other - Large left breast abscess with increased pain redness and swelling Hematologic/Lymphatic: No symptoms reported Neurological/Psychological: No symptoms reported -: Yes All other systems reviewed and negative Physical Exam - Vital signs Vitals: Temp Pulse Resp BP Pulse Ox 99.2 F 89 20 127/114 H 96 06/23/17 20:40 06/23/17 20:40 06/23/17 20:40 06/23/17 20:40 06/23/17 20:40 Interpretation: Normal - General General appearance: Appears well, Alert - HEENT Head: Normocephalic, Atraumatic Eyes: Normal Pupils: PERRL - Respiratory Respiratory status: No respiratory distress Chest status: Nontender Breath sounds: Normal Chest palpation: Normal - Cardiovascular Rhythm: Regular Heart sounds: Normal auscultation Murmur: No - Abdominal Inspection: Normal Distension: No distension Bowel sounds: Normal Tenderness: Nontender Organomegaly: No organomegaly - Back Back: Normal, Nontender - Extremities General upper extremity: Normal inspection, Nontender, Normal color, Normal ROM , Normal temperature General lower extremity: Normal inspection, Nontender, Normal color, Normal ROM , Normal temperature, Normal weight bearing. No: Marie's sign - Neurological Neuro grossly intact: Yes Cognition: Normal Orientation: AAOx4 Lucas Coma Scale Eye Opening: Spontaneous Lucas Coma Scale Verbal: Oriented Lucas Coma Scale Motor: Obeys Commands Lucas Coma Scale Total: 15 Speech: Normal Motor strength normal: LUE, RUE, LLE, RLE Sensory: Normal - Psychological Associated symptoms: Normal affect, Normal mood - Skin Skin Temperature: Warm Skin Moisture: Dry Skin Color: Normal Skin irregularity: Abscess Location of irregularity: Other - Left breast around to the axilla with redness covering the most of the breast. Irregularity with: Swelling, Tenderness, Warmth Course - Re-evaluation Re-evalutation: 06/24/17 01:[address] Rodrigez the first examined and the patient and he stated that he agreed that the patient needed to be seen by the surgeon. He also stated that the patient would need CBC chemistry sed rate CRP and lactic acid before calling the surgeon. These were all run and then at 23:15 the surgeon was consulted and he stated that the patient would need to be admitted. He would like Unasyn given for her abscess and he would like her to be n.p.o. after midnight. He requested speaking to the nurse that he could give orders for the patient's admission. And the nurse was brought to the phone for him. - Vital Signs Vital signs: Temp Pulse Resp BP Pulse Ox 100.3 F 92 20 140/59 H 92 06/24/17 00:24 06/24/17 00:24 06/24/17 00:24 06/24/17 00:24 06/24/17 00:24 - Laboratory Result Diagrams: 06/23/17 21:45 06/23/17 21:45 Laboratory results interpreted by me: 06/23/17 06/23/17 21:45 21:45 RDW 16.0 H ESR 109 H BUN 21 H Est GFR ( Amer) 58 L Est GFR (Non-Af Amer) 48 L Glucose 120 H Direct Bilirubin 0.5 H C-Reactive Protein 158.0 H - Consults Adusumillifeanyi Time consulted: 23:15 Reason for consultation: 06/24/17 01:04 left breast abscess with cellulitis to most of the breast. Consulted provider: will see as inpatient Discharge - Discharge Clinical Impression: Left breast abscess Disposition: ADMITTED INPATIENT Admitting Provider: Surgicalist - [facility] Unit Admitted: Surgical Floor
[2017-06-23 22:09] LABS: ABSOLUTE BASOPHILS # (AUTO) 0.1 10^3/uL (0.0-0.2); ABSOLUTE EOSINOPHILS # (AUTO) 0.1 10^3/uL (0.0-0.6); ABSOLUTE LYMPHOCYTES (AUTO) 1.6 10^3/uL (0.5-4.7); ABSOLUTE MONOCYTES (AUTO) 0.9 10^3/uL (0.1-1.4); ABSOLUTE NEUT (AUTO) 6.7 10^3/uL (1.7-8.2); BASOPHILS % (AUTO) 0.6 % (0-2); EOSINOPHILS % (AUTO) 1.1 % (0-6); HEMATOCRIT 37.7 % (36.0-47.0); HEMOGLOBIN 12.9 g/dL (12.0-15.5); LYMPHOCYTES % (AUTO) 16.9 % (13-45); MEAN CORPUSCULAR HEMOGLOBIN 31.5 pg (27.0-33.4); MEAN CORPUSCULAR HGB CONC 34.2 g/dL (32.0-36.0); MEAN CORPUSCULAR VOLUME 92 fl (80-97); MONOCYTES % (AUTO) 10.1 % (3-13); PLATELET COUNT 200 10^3/uL (150-450); RED BLOOD COUNT 4.09 10^6/uL (3.72-5.28); SEGMENTED NEUTROPHILS % (AUTO) 71.3 % (42-78); TOTAL CELLS COUNTED % (AUTO) 100 %; WHITE BLOOD COUNT 9.4 10^3/uL (4.0-10.5)
[2017-06-23 22:32] LABS: ALANINE AMINOTRANSFERASE 16 U/L (9-52); ALBUMIN 3.8 g/dL (3.5-5.0); ALKALINE PHOSPHATASE 83 U/L (38-126); ANION GAP 9 (5-19); ASPARTATE AMINO TRANSFERASE 25 U/L (14-36); BILIRUBIN,DIRECT 0.5 mg/dL (0.0-0.4); BILIRUBIN,TOTAL 0.5 mg/dL (0.2-1.3); BLOOD UREA NITROGEN 21 mg/dL (7-20); CALCIUM 9.6 mg/dL (8.4-10.2); CARBON DIOXIDE 30 mmol/L (22-30); CHLORIDE 102 mmol/L (98-107); GLUCOSE 120 mg/dL (75-110); POTASSIUM 4.7 mmol/L (3.6-5.0); SODIUM 140.5 mmol/L (137-145); TOTAL PROTEIN 7.3 g/dL (6.3-8.2)
[2017-06-23 22:53] LABS: ERYTHROCYTE SEDIMENTATION RATE 109 mm/hr (0-30)
[2017-06-23] MEDS ORDERED: AMPICILLIN SOD/SULBACTAM 3 GM VIAL IV ONE (23:16)
[2017-06-24] MEDS ORDERED: AMPICILLIN SOD/SULBACTAM 3 GM VIAL IV PRN (00:17)
[2017-06-24] MEDS ORDERED: ACETAMINOPHEN 325 MG TABLET PO PRN (00:18)
[2017-06-24] MEDS: HYDROMORPHONE HCL INJ/PF 2 MG/ML AMPULE IV PRN ×4 (00:31→20:21)
[2017-06-24] MEDS: NORMAL SALINE 1000 ML 1,000 ML IV PRN (02:50)
[2017-06-24] MEDS ORDERED: INFLUENZA ADLT QUAD (36MOS+) 2017-18 VAC 0.5 ML SYR IM PRN (05:24)
[2017-06-24] MEDS ORDERED: DEXTROSE 50%-WATER 25 GM/50 ML DISP.SYRIN IV PRN ×2 (05:25)
[2017-06-24] MEDS ORDERED: GLUCAGON,HUMAN RECOMB 1 MG INJ SUBCUT PRN (05:25)
[2017-06-24] MEDS ORDERED: DEXTROSE 40% GEL 15 GM TUBE PO PRN ×2 (05:25)
[2017-06-24] MEDS: AMPICILLIN SODIUM/SULBACTAM NA 3 GM in NORMAL SALINE 100 ML IV SCH ×4 (06:31→23:35)
[2017-06-24] MEDS ORDERED: BUPIVACAINE HCL 0.25 % INJ/PF (2.5 MG/1 ML) 30 ML VIAL ONE (11:11)
[2017-06-24] MEDS ORDERED: KETAMINE HCL INJ 500 MG/10 ML VIAL ONE (12:44)
[2017-06-24] MEDS ORDERED: MIDAZOLAM 2 MG/2 ML INJ ONE (12:45)
[2017-06-24] MEDS ORDERED: ACETAMINOPHEN 100 ML IV ONE (12:45)
[2017-06-24] MEDS ORDERED: DEXMEDETOMIDINE INJ 80 MCG/20 ML VIAL IV ONE (12:45)
[2017-06-24] MEDS ORDERED: PROPOFOL INJ 200 MG/20 ML VIAL IV ONE (12:45)
[2017-06-24] MEDS ORDERED: FENTANYL CITRATE INJ/PF 100 MCG/2 ML AMPUL ONE (12:45)
[2017-06-24] MEDS ORDERED: GLYCOPYRROLATE INJ 0.4 MG/2 ML VIAL ONE (13:37)
[2017-06-24] MEDS ORDERED: ONDANSETRON HCL INJ/PF 4 MG/2 ML SDV ONE (13:37)
[2017-06-24] MEDS ORDERED: ALBUTEROL SULFATE 0.083% NEB 2.5 MG/3 ML AMPUL NEB ONE (13:52)
[2017-06-24] MEDS ORDERED: MORPHINE SULFATE 10 MG/ML INJ IV PRN (14:08)
[2017-06-24] MEDS ORDERED: MEPERIDINE HCL/PF INJ 25 MG/1 ML DISP.SYRIN IV PRN (14:08)
[2017-06-24] MEDS ORDERED: FENTANYL CITRATE INJ/PF 100 MCG/2 ML AMPUL IV PRN ×3 (14:08)
[2017-06-24] MEDS ORDERED: DIPHENHYDRAMINE HCL 50 MG/ML VIAL IV PRN (14:08)
[2017-06-24] MEDS ORDERED: ONDANSETRON HCL INJ/PF 4 MG/2 ML SDV IV PRN (14:08)
[2017-06-24] MEDS ORDERED: PROMETHAZINE HCL INJ 25 MG/1 ML VIAL IV PRN ×2 (14:08)
[2017-06-24] MEDS ORDERED: OXYCODONE-ACETAMINOPHEN 5-325 MG TABLET PO PRN ×2 (14:08)
[2017-06-24] MEDS: HYDROCODONE/ACETAMINOPHEN 5-325 MG TABLET PO PRN (17:02)
--- NOTE | 2017-06-24 17:58 | OPERATIVE REPORT E ---
Operative Report NAME: STEPHANIE VO : 1965 AGE: 52Y DATE OF SURGERY: 06/24/2017 ROOM: [facility] PREOPERATIVE DIAGNOSIS: Abscess, left breast in the left axillary area. POSTOPERATIVE DIAGNOSIS: Deep abscess in the left axillary area extending towards the breast tissue, about 5 to 6 cm in size and a large abscess cavity extending deeply. OPERATION: Incision and drainage of the abscess of the left breast area along with excision and debridement of the necrotic soft tissue in that area to the posterior fascia. SURGEON: MAIA GUZMAN M.D. ANESTHESIA: General. ESTIMATED BLOOD LOSS: Less than 10 mL. TISSUE REMOVED OR ALTERED: Specimens: A specimen sent for culture and sensitivity. HISTORY AND INDICATION: As described. DESCRIPTION OF PROCEDURE: Under general anesthesia in the supine position, the left axillary area, after cleaning and prepping of that area, a cruciate incision was made, and then the underlying abscess of about 20 mL of pus was drained, sent for cultures. There was some necrotic soft tissue extending all the way to the fascial level which was debrided all the way to the fascial level until all the edges were cleaned and the entire area was irrigated copiously, suctioned out and was secured, and the wound was packed with dressings. The patient tolerated the procedure very well, went to recovery area uneventfully. DICTATING PHYSICIAN: MAIA GUZMAN M.D. [id number] PHY#: [id number] ID: [id number] JOB#: [id number] ACCT: [id number] cc:MAIA GUZMAN M.D. > [facility]
--- NOTE | 2017-06-24 18:03 | HISTORY AND PHYSICAL E ---
History and Physical NAME: STEPHANIE VO : 1965 AGE: 52Y ADMITTED: 06/23/2017 ROOM: 532 HISTORY OF PRESENT ILLNESS: A 52-year-old female patient being admitted to the hospital through the emergency room for evaluation and management of cellulitis of the left axillary/left breast area. The patient started having some pain and erythema, so was seen in the ER before she was sent home with an oral antibiotic, Keflex. She came back again with increasing pain and swelling and redness, and no history of abscess in this area before. PAST MEDICAL HISTORY: 1. History of sleep apnea. 2. History of COPD. 3. Diabetes. REVIEW OF FURTHER SYSTEMS: Negative. PHYSICAL EXAMINATION: GENERAL: She is awake, alert, oriented. HEAD AND NECK: No lymphadenopathy. No masses. CHEST: Both sides are clear to auscultation. CARDIOVASCULAR: Both heart sounds are normal. No murmurs or gallops. ABDOMEN: Soft, nontender. No masses palpable. No hernia. EXTREMITIES: Normal. Well perfused. SKIN: Examination of the left axillary/left breast area revealed about a 5 to 6 cm large area of fluctuant area of this area with a cellulitis around this area. It is mostly in the axillary area extending towards the breast, seemed to be most likely an axillary deep abscess. IMPRESSION OVERALL: Cellulitis of the left breast chest wall area along with a possible abscess on admission. PLAN: Admit to the floor for intravenous antibiotic and pain management plus incisional drainage of that area. DICTATING PHYSICIAN: MAIA GUZMAN M.D. [id number] PHY#: [id number] ID: [id number] JOB#: [id number] ACCT: [id number] cc:NO Mony MEADE M.D. >
[2017-06-25] MEDS: HYDROMORPHONE HCL INJ/PF 2 MG/ML AMPULE IV PRN ×5 (01:45→20:32)
[2017-06-25] MEDS: HYDROCODONE/ACETAMINOPHEN 5-325 MG TABLET PO PRN ×3 (05:00→22:47)
[2017-06-25] MEDS: AMPICILLIN SODIUM/SULBACTAM NA 3 GM in NORMAL SALINE 100 ML IV SCH ×4 (05:02→23:51)
[2017-06-25] MEDS: NORMAL SALINE 1000 ML 1,000 ML IV PRN ×2 (09:23→23:52)
[2017-06-25] MEDS ORDERED: METAXALONE 800 MG TABLET PO PRN (18:39)
--- NOTE | 2017-06-25 19:00 | PDOC PROGRESS REPORT ---
Subjective Subjective:: Patient postop day 1 after I&D of a left chest wall abscess. This may be suspicious for MRSA. She did complain of pain and nurses alternating use of Dilaudid and Toradol. History further reveals that about 3 months ago she had a boil on her left buttock that they drained at home was yellowish green purulence coming from it. This left a scar on her skin makes me more suspicious of MRSA because of that. Reason For Visit: ABSCESS OF LEFT BREAST Physical Exam Vital Signs: Temp Pulse Resp BP Pulse Ox 98.9 F 77 16 180/85 H 94 06/25/17 16:09 06/25/17 16:09 06/25/17 16:09 06/25/17 16:09 06/25/17 16:09 Intake & Output 06/24/17 06/25/17 06/26/17 06:59 06:59 06:59 Intake Total 581 6265 1920 Output Total 205 Balance 581 6060 1920 Weight 91.4 kg General appearance: PRESENT: no acute distress, obese, well-developed Head exam: PRESENT: normocephalic Skin exam: PRESENT: other - Examination of the left chest wall skin reveals that there is a approximately 3 x 2 cm opening where the abscess was. Surrounding this there is some skin erythema but the area that had been marked 3 -4 days ago where she was cellulitic has resolved significantly. Packing was removed from the current opening there is a fairly significant depth of an abscess cavity. This was repacked with a moist saline moistened 4 x 4 covered with dry 4 x 4's. The wound appears clean without obvious purulence now. [employer] is pending. Results Laboratory Results: Final microbiology pending Assessment & Plan - Diagnosis (1) Left breast abscess Is this a current diagnosis for this admission?: Yes Plan: Daily dressing changes, await cultures. Once we know what cultures show could consider home on oral antibiotics. Suspicious of MRSA. A nasal swab sent today - Time Time Spent with patient: Less than 15 minutes - Dressing changed with the nurse.
[2017-06-25] MEDS ORDERED: (PENDING PHARMACY ID) (Clonidine Hcl [Catapres 0.3 Mg Tablet] 0.3 MG) PO SCH (22:00)
[2017-06-25] MEDS ORDERED: CLONIDINE HCL 0.1 MG TABLET PO SCH (22:00)
[2017-06-25] MEDS: ATENOLOL 50 MG TABLET PO SCH (22:44)
[2017-06-25] MEDS: GABAPENTIN 400 MG CAPSULE PO SCH (22:44)
[2017-06-26] MEDS: HYDROMORPHONE HCL INJ/PF 2 MG/ML AMPULE IV PRN ×2 (00:02→06:37)
[2017-06-26] MEDS: GABAPENTIN 400 MG CAPSULE PO SCH (06:37)
[2017-06-26] MEDS: AMPICILLIN SODIUM/SULBACTAM NA 3 GM in NORMAL SALINE 100 ML IV SCH ×2 (06:37→12:09)
[2017-06-26] MEDS ORDERED: HYDROCHLOROTHIAZIDE 25 MG TABLET PO SCH (10:00)
[2017-06-26] MEDS ORDERED: METFORMIN HCL 500 MG TABLET PO SCH (10:00)
[2017-06-26] MEDS ORDERED: (PENDING PHARMACY ID) (Lisinopril/Hydrochlorothiazide [Zestoretic 20-25 Mg Tablet] 1 TAB) PO SCH (10:00)
[2017-06-26] MEDS ORDERED: LISINOPRIL 10 MG TABLET PO SCH (10:00)
--- NOTE | 2017-06-26 11:59 | PDOC DISCHARGE SUMMARY ---
General - Admit/Disc Date/PCP Admission Date/Primary Care Provider: 06/23/17 23:27 Discharge Date: 06/26/17 - Discharge Diagnosis (1) Left breast abscess Is this a current diagnosis for this admission?: Yes (2) Cellulitis of left breast Is this a current diagnosis for this admission?: Yes - Additional Information Resuscitation Status: Full Code Discharge Diet: Diabetic Discharge Activity: Activity As Tolerated, Slowly Increase Activity Prescriptions: Sulfamethoxazole/Trimethoprim [Bactrim Ds Tablet] 1 each PO BID #14 tablet Home Medications: Atenolol [Tenormin 50 mg Tablet] 50 mg PO BID 06/24/17 Clonidine HCl [Catapres 0.3 mg Tablet] 0.3 mg PO QHS 06/24/17 Dexlansoprazole [Dexilant 60 mg Capsule] 60 mg PO DAILY 06/24/17 Duloxetine HCl [Cymbalta 20 mg Capsule.dr] 20 mg PO DAILY 06/24/17 Gabapentin [Neurontin] 800 mg PO Q8 06/24/17 Lisinopril/Hydrochlorothiazide [Zestoretic 20-25 mg Tablet] 1 tab PO DAILY 06/24 Meloxicam [Mobic] 15 mg PO QHS 06/24/17 Metaxalone [Skelaxin 800 mg Tablet] 800 mg PO TIDP PRN 06/24/17 Metformin HCl [Glucophage 500 mg Tablet] 500 mg PO DAILY 06/24/17 Acetaminophen [Tylenol 325 mg Tablet] 650 mg PO Q6HP PRN tablet 06/26/17 Sulfamethoxazole/Trimethoprim [Bactrim Ds Tablet] 1 each PO BID #14 tablet 06/26 History of Present Illness History of Present Illness: STEPHANIE VO is a 52 year old female Hospital Course Hospital Course: Patient had a operative incision and drainage on the day after admission. Was treated with IV antibiotics and cellulitis is resolving. Patient had appropriate dressing changes done during her hospital stay. She will do these at home and follow-up with the surgical clinic. Cultures are still pending at this time but Gram stain shows gram-positive cocci. Physical Exam Vital Signs: Temp Pulse Resp BP Pulse Ox 98.2 F 89 20 149/73 H 99 06/26/17 07:59 06/26/17 07:59 06/26/17 07:59 06/26/17 07:59 06/26/17 07:59 Intake & Output 06/25/17 06/26/17 06/27/17 06:59 06:59 06:59 Intake Total 6265 3391 Output Total 205 Balance 6060 3391 Weight 91.4 kg General appearance: PRESENT: no acute distress Head exam: PRESENT: atraumatic Skin exam: PRESENT: other - Evaluation of left chest wall today reveals resolution of cellulitis around the abscess cavity. She has an open wound that is packed with saline moistened gauze and covered with dry gauze and tape. Results Laboratory Results: Gram stain on cultures from the OR showed gram-positive cocci not yet identified I also had a swab of her nose sent to test for MRSA. Qualifiers PATEINT BEING DISCHARGED WITH ANY OF THE FOLLOWING DIAGNOSIS?: No Plan Discharge Plan: Have discussed with the patient a plan to have daily dressing changes at home with saline moistened gauze. She understands that she needs to let this heal in from the inside out. She will follow-up with surgical clinic or outpatient wound clinic in 3-5 days. Home on Bactrim for 1 week. If cultures show MRSA she will need to be called to double the dose for its treatment. Time Spent: Greater than 30 Minutes
[2017-06-26] MEDS: ATENOLOL 50 MG TABLET PO SCH (12:11)
[2017-06-26] MEDS: HYDROCODONE/ACETAMINOPHEN 5-325 MG TABLET PO PRN (12:12)
[2017-06-26 12:37] VITALS: BP 150/80
== END 2017-06-26 15:01 | disposition home or self-care (01) | DRG 585 ==
LOC: ER 20:28 → EH 23:27 → 5 06-24 01:30
PROVIDERS: ATTEND Colon & Rectal Surgery
PROC: 0HBU0ZZ Excision of Left Breast, Open Approach (ICD-10-PCS; principal; 2017-06-24 13:00)
DX: N61.1 Abscess of the breast and nipple (principal); F17.210 Nicotine dependence, cigarettes, uncomplicated; I10 Essential (primary) hypertension; E11.9 Type 2 diabetes mellitus without complications; K44.9 Diaphragmatic hernia without obstruction or gangrene; N61.0 Mastitis without abscess; J44.9 Chronic obstructive pulmonary disease, unspecified; G47.30 Sleep apnea, unspecified; Z91.040 Latex allergy status; Z90.710 Acquired absence of both cervix and uterus; Z88.8 Allergy status to other drugs, medicaments and biological substances; Z90.49 Acquired absence of other specified parts of digestive tract
CPT/HCPCS: 36415; 400; 80053; 82962; 83605; 85025; 85652; 86140; 87040; 87070; 87075; 87077; 87186; 87205; 99284; J0131; J0295; J1170; J2250; J2405; J2704; J3010; J3490; J7030

== ENCOUNTER → 2018-02-11 | Outpatient (CLI) | payer BC, MEDICARE ==
--- NOTE | 2018-02-11 16:44 | RADIOLOGY REPORT (SQ) ---
EXAM DESCRIPTION: HIP BILATERAL COMPLETED DATE/TIME: 02/11/2018 4:28 pm REASON FOR STUDY: LEFT HIP PAIN M25.552 PAIN IN LEFT HIP COMPARISON: None. NUMBER OF VIEWS: Two views. TECHNIQUE: AP pelvis and additional frog-leg view of the right and left hip. LIMITATIONS: None. FINDINGS: MINERALIZATION: Normal. PRIMARY HIP: No fracture or dislocation. No worrisome bone lesions. OPPOSITE HIP: No fracture or dislocation. No worrisome bone lesions. PUBIS AND ISCHIUM: No fracture. PELVIS: No fracture. SACRUM: No fracture or dislocation. No worrisome bone lesions. LOWER LUMBAR SPINE: Rods are present in the lower lumbar spine. SOFT TISSUES: No findings. OTHER: No other significant finding. IMPRESSION: NEGATIVE STUDY OF THE RIGHT AND LEFT HIPS AND PELVIS. NO RADIOGRAPHIC EVIDENCE OF ACUTE INJURY. TECHNICAL DOCUMENTATION: JOB ID: [id number] [email or web address]- All Rights Reserved Reading location - IP/workstation name: [email or web address]
== END ==
LOC: RAD 16:11
PROVIDERS: ATTEND Pain Medicine Pain Medicine
DX: M25.552 Pain in left hip (principal)
CPT/HCPCS: 73522

== ENCOUNTER → 2019-04-01 | Outpatient (CLI) | payer MEDICARE ==
--- NOTE | 2019-04-01 11:46 | WOMENS IMAGING REPORT ---
EXAM DESCRIPTION: BILAT SCREENING MAMMO W/CAD COMPLETED DATE/TIME: 04/01/2019 10:35 am REASON FOR STUDY: Z12.31 SCREENING MAMMO Z12.31 ENCNTR SCREEN MAMMOGRAM FOR MALIGNANT NEOPLASM OF B RE COMPARISON: 2017 EXAM PARAMETERS: Standard craniocaudal and mediolateral oblique views of each breast recorded using digital acquisition. Read with the assistance of CAD. .[facility] - [facility] [employer] Worker Version 9.2 LIMITATIONS: None. FINDINGS: Findings present which are benign by mammographic criteria. No suspicious masses, calcifi cations or architectural distortion. Pertinent benign findings: Partially circumscribed densities in the left lateral breast, stable. Benign mammographic findings may include one or more of the following: Smooth masses, popcorn/rim/co arse calcifications, asymmetries, post-procedure changes, and lesions with long-standing stability. IMPRESSION: BENIGN MAMMOGRAPHIC FINDINGS. BIRADS 2 BREAST DENSITY: b. There are scattered areas of fibroglandular density. BIRAD: ASSESSMENT: 2 BENIGN FINDING(S) RECOMMENDATION: ROUTINE SCREENING COMMENT: The patient has been notified of the results by letter per MQSA requirements. Additional no tification policies are in place for contacting patient with suspicious or incomplete findings. Quality ID #[id number]: The [employer] recommends an annual screening mammogram for women aged 40 years or over. This facility utilizes a reminder system to ensure that all patients receive reminder letters, and/or direct phone calls for appointments. This includes reminders for routine scr eening mammograms, diagnostic mammograms, or other Breast Imaging Interventions when appropriate. Th is patient will be placed in the appropriate reminder system. TECHNICAL DOCUMENTATION: FINDING NUMBER: (1) ASSESSMENT: (1) JOB ID: [id number] [employer]- All Rights Reserved Reading location - IP/workstation name: [email or web address]
== END ==
LOC: WI 10:20
PROVIDERS: ATTEND Family Medicine
DX: Z12.31 Encounter for screening mammogram for malignant neoplasm of breast (principal)
CPT/HCPCS: 77067

== ENCOUNTER 2019-04-06 10:44 | Day surgery (SDC) | payer MEDICARE ==
[2019-04-06] MEDS ORDERED: SIMETHICONE 80 MG TAB.CHEW ONE (12:39)
[2019-04-06 12:58] VITALS: BP 131/64
--- NOTE | 2019-04-06 13:07 | Operative Report ---
Operative Report DATE OF SURGERY: 04/06/19 Operative Report: The risks, benefits and alternatives of the procedure including the risk of bleeding, perforation requiring surgery have been explained to the patient in detail and informed consent has been obtained. The patient is placed in a left, lateral decubital position. Timeout was called. Propofol medication is administered. Rectal examination is done which did not reveal any masses, tears or fissures. An Olympus videoscope was introduced into the patient's rectum. The scope was then carefully advanced all the way to the cecum. Cecum was identified by the usual anatomical landmarks including the ileocecal valve as well as the appendiceal office. Photodocumentation is obtained. The scope was then sequentially pulled back via the various segments of the colon including the ascending colon, hepatic flexure, transverse colon, splenic flexure, descend ing colon and finding to the rectosigmoid portions of the colon. Retroflexion maneuver is performed. The risks benefits and alternatives of the procedure explained to the patient in detail and informed consent is obtained.A GIF Olympus video scope was inserted into the patient's mouth and hypopharynx, the esophagus is identified intubated and insufflated ,the scope was then advanced through the esophagus stomach and duodenum, retroflexion maneuver is done, the esophagus stomach and first and second portions of the duodenum examined. PREOPERATIVE DIAGNOSIS: Personal history of polyp. Epigastric pain POSTOPERATIVE DIAGNOSIS: Right colon inflammation status post biopsy rule out Crohn's disease, ischemic colitis. Diverticulosis without any evidence of diverticulitis. Internal hemorrhoids. Colon polyp in the rectosigmoid area removed via biopsy forceps. Gastritis likely due to NSAIDs status post biopsy. Duodenitis OPERATION: Colonoscopy with biopsy. EGD with biopsy SURGEON: VIKRAM FRANCISCO ANESTHESIA: LMAC TISSUE REMOVED OR ALTERED: As noted above. COMPLICATIONS: None. ESTIMATED BLOOD LOSS: None. INTRAOPERATIVE FINDINGS: As noted above. PROCEDURE: Patient tolerated the procedure well. No immediate postprocedure complications are noted. Patient is discharged in good condition. Discharge date 04/06/2019. Discharge diet: Regular. Discharge activity: Regular. 2 to 3-week follow-up to discuss findings. Patient is instructed to call the office or proceed to the emergency room should there be any further problems or questions. Wait on the pathology. 3 to 5-year surveillance colonoscopy.
== END 2019-04-06 13:00 | disposition home or self-care (01) ==
LOC: END 10:44
PROVIDERS: ATTEND Internal Medicine Gastroenterology
DX: K63.5 Polyp of colon (principal); K52.9 Noninfective gastroenteritis and colitis, unspecified; K57.30 Diverticulosis of large intestine without perforation or abscess without bleeding; K64.8 Other hemorrhoids; Z86.010 Personal history of colon polyps; K29.70 Gastritis, unspecified, without bleeding; K29.80 Duodenitis without bleeding; F17.210 Nicotine dependence, cigarettes, uncomplicated; G47.33 Obstructive sleep apnea (adult) (pediatric); E66.9 Obesity, unspecified; I10 Essential (primary) hypertension; E78.2 Mixed hyperlipidemia; E11.9 Type 2 diabetes mellitus without complications; Z79.899 Other long term (current) drug therapy; Z79.84 Long term (current) use of oral hypoglycemic drugs; Z68.31 Body mass index [BMI] 31.0-31.9, adult
CPT/HCPCS: 43239; 45380; 82962; 88342 ×2; 88305 ×2; 00813; A9270; J2704; 813

== ENCOUNTER 2019-11-20 20:59 | Inpatient (IN) | payer MEDICARE, MEDICAID ==
[2019-11-20 22:19] LABS: INTERNATIONAL RATION (INR) 1.19; PROTHROMBIN TIME 15.2 SEC (11.4-15.4)
[2019-11-20 22:21] LABS: ALBUMIN 4.1 g/dL (3.5-5.0); ALKALINE PHOSPHATASE 104 U/L (38-126); ANION GAP 12 (5-19); ASPARTATE AMINO TRANSFERASE 36 U/L (14-36); BILIRUBIN,DIRECT 0.3 mg/dL (0.0-0.4); BILIRUBIN,TOTAL 0.7 mg/dL (0.2-1.3); BLOOD UREA NITROGEN 25 mg/dL (7-20); CALCIUM 9.1 mg/dL (8.4-10.2); CARBON DIOXIDE 24 mmol/L (22-30); CHLORIDE 100 mmol/L (98-107); GLUCOSE 115 mg/dL (75-110)
[2019-11-20 22:23] LABS: HEMATOCRIT 39.8 % (36.0-47.0); HEMOGLOBIN 13.2 g/dL (12.0-15.5); MEAN CORPUSCULAR HEMOGLOBIN 29.1 pg (27.0-33.4); MEAN CORPUSCULAR HGB CONC 33.2 g/dL (32.0-36.0); MEAN CORPUSCULAR VOLUME 88 fl (80-97); PLATELET COUNT 171 10^3/uL (150-450); RED BLOOD COUNT 4.54 10^6/uL (3.72-5.28); RED CELL DISTRIBUTION WIDTH 15.5 % (11.5-14.0); WHITE BLOOD COUNT 8.3 10^3/uL (4.0-10.5)
[2019-11-20 22:38] LABS: ABSOLUTE LYMPHOCYTES# (MANUAL) 1.7 10^3/uL (0.5-4.7); ABSOLUTE MONOCYTES # (MANUAL) 0.6 10^3/uL (0.1-1.4); BAND NEUTROPHILS % (MANUAL) 8 % (3-5); BASOPHILS % (MANUAL) 0 % (0-2); EOSINOPHILS % (MANUAL) 1 % (0-6); LYMPHOCYTES % (MANUAL) 18 % (13-45); METAMYELOCYTES % (MANUAL) 2 % (0-1); MONOCYTES % (MANUAL) 7 % (3-13); SEGMENTED NEUTROPHILS % (MAN) 62 % (42-78); TOTAL CELLS COUNTED 100
[2019-11-20 22:39] LABS: ANISOCYTOSIS SLIGHT; PLATELET COMMENT ADEQUATE; POLYCHROMASIA SLIGHT
--- NOTE | 2019-11-20 22:45 | RADIOLOGY REPORT (SQ) ---
CLINICAL INDICATION: SOB. TECHNIQUE: A single portable AP view was obtained of the chest at 2204 hours. COMPARISON: None available. FINDINGS: The cardiomediastinal silhouette is normal. The lungs there is a patchy airspace disease right upper lobe. No evidence of effusion or pneumothorax. Demonstrate osteoarthritis and remote postsurgical change. IMPRESSION: Patchy airspace disease right upper lobe, likely pneumonia.
[2019-11-20] MEDS ORDERED: CEFTRIAXONE 1 GM/D5W RTU 1 GM/50 ML RTUPB IV ONE (23:25)
[2019-11-20] MEDS ORDERED: AZITHROMYCIN INJ 500 MG VIAL IV ONE (23:26)
--- NOTE | 2019-11-20 23:28 | ER Document Report ---
ED General - General Chief Complaint: Fever Stated Complaint: FEVER WITH CHILLS Time Seen by Provider: 11/20/19 23:16 Mode of Arrival: Medic Information source: Patient, Relative, Emergency Med Personnel Notes: 54-year-old female arrived by EMS with 2-week history of malaise fever chills poor appetite sensorium changes. Her had similar symptoms and was treated for URI and positive for strep throat. Patient denies any coronavirus exposure but it is currently a pike virus pandemic in this country and the world. Patient has no skin rash. EMS reported she had hypotension and gave her IV fluid bolus prior to arrival. TRAVEL OUTSIDE OF THE [place] IN LAST 30 DAYS: No - HPI Onset: Other - x 2 weeks Onset/Duration: Sudden, Persistent, Worse Quality of pain: Achy Severity: Mild Pain Level: 1 Associated symptoms: Chest pain, Chills, Nonproductive cough, Fever, Weakness Exacerbated by: Denies Similar symptoms previously: Yes Recently seen / treated by doctor: No - Related Data Allergies/Adverse Reactions: succinylcholine [Succinylcholine] Allergy (Severe, Verified 04/06/19 10:28) Coma latex Allergy (Intermediate, Verified 04/06/19 10:28) Skin Redness Home Medications: Januvia. lisinopril. gabapentin. prozac Past Medical History - General Information source: Patient - Social History Smoking Status: Current Every Day Smoker Cigarette use (# per day): No Chew tobacco use (# tins/day): No Frequency of alcohol use: None Drug Abuse: None Family History: Reviewed & Not Pertinent Patient has homicidal ideation: No - Past Medical History Cardiac Medical History: Reports: Hx Hypertension Denies: Hx Coronary Artery Disease, Hx Heart Attack Pulmonary Medical History: Denies: Hx Asthma, Hx Bronchitis, Hx COPD, Hx Pneumonia Neurological Medical History: Denies: Hx Cerebrovascular Accident, Hx Seizures Endocrine Medical History: Reports: Hx Diabetes Mellitus Type 2 Renal/ Medical History: Denies: Hx Peritoneal Dialysis GI Medical History: Reports: Hx Hiatal Hernia Musculoskeletal Medical History: Denies Hx Arthritis Skin Medical History: Reports Hx Cellulitis Past Surgical History: Reports: Hx Cholecystectomy, Hx Hysterectomy - Immunizations Hx Diphtheria, Pertussis, Tetanus Vaccination: Yes Hx Pneumococcal Vaccination: 06/11/12 Review of Systems - Review of Systems Constitutional: See HPI, Chills, Fever, Malaise, Weakness, Recent illness EENT: No symptoms reported Cardiovascular: See HPI, Chest pain Respiratory: No symptoms reported Gastrointestinal: No symptoms reported Genitourinary: No symptoms reported Female Genitourinary: No symptoms reported Musculoskeletal: No symptoms reported Skin: No symptoms reported Hematologic/Lymphatic: No symptoms reported Neurological/Psychological: No symptoms reported Physical Exam - Vital signs Vitals: Temp Resp Pulse Ox 101.0 F H 26 H 96 11/20/19 20:59 11/20/19 20:59 11/20/19 20:59 Interpretation: Tachycardic, Hypoxic, Tachypneic - General General appearance: Lethargic - But easily awakened - HEENT Head: Normocephalic, Atraumatic Eyes: Normal Pupils: PERRL Mucous membranes: Dry Pharynx: Normal Neck: Normal - Respiratory Respiratory status: Tachypnea Chest status: Nontender Breath sounds: Decreased air movement, Nonproductive cough Chest palpation: Normal - Cardiovascular Rhythm: Tachycardia Murmur: No - Abdominal Inspection: Obese - Rectal Hemorrhoids: Other - deferred - Genitourinary External exam: Normal - Back Back: Normal - Extremities General upper extremity: Normal inspection General lower extremity: Normal inspection - Neurological Orientation: Disoriented to time [place] Coma Scale Eye Opening: To Voice Nathanael Coma Scale Motor: Obeys Commands Speech: Normal Cranial nerves: Normal Motor strength normal: LUE, RUE, LLE, RLE Course - Vital Signs Vital signs: Temp Pulse Resp BP Pulse Ox 101.4 F H 104 H 26 H 120/82 99 11/21/19 00:20 11/20/19 21:04 11/20/19 23:01 11/21/19 00:00 11/21/19 00:01 - Laboratory Result Diagrams: 11/20/19 20:40 11/20/19 20:40 Laboratory results interpreted by me: 11/20/19 11/20/19 20:40 20:40 RDW 15.5 H Band Neutrophils % 8 H Metamyelocytes % 2 H Sodium 136.2 L BUN 25 H Est GFR ( Amer) 56 L Est GFR (MDRD) Non-Af 46 L Glucose 115 H - Diagnostic Test Radiology reviewed: Reports reviewed - EKG Interpretation by Me EKG shows normal: Sinus rhythm Critical Care Note - Critical Care Note Total time excluding time spent on procedures (mins): 90 Discharge - Discharge Clinical Impression: Fever Qualifiers: Fever type: unspecified Qualified Code(s): R50.9 - Fever, unspecified Pneumonia Qualifiers: Pneumonia type: due to unspecified organism Laterality: right Lung location: lower lobe of lung Qualified Code(s): J18.9 - Pneumonia, unspecified organism Condition: Fair Disposition: ADMITTED INPATIENT Admitting Provider: Clif[place] (Hospitalist) Unit Admitted: Medical Floor Additional Instructions: transfer to med floor
[2019-11-21] MEDS ORDERED: ACETAMINOPHEN 650 MG SUPP.RECT PR ONE (00:38)
[2019-11-21] MEDS ORDERED: DEXTROSE 40% GEL 15 GM TUBE PO PRN ×2 (00:46)
[2019-11-21] MEDS ORDERED: ACETAMINOPHEN 325 MG TABLET PO PRN (00:46)
[2019-11-21] MEDS ORDERED: GUAIFENESIN SYRP 200 MG/10 ML UDC PO PRN (00:46)
[2019-11-21] MEDS ORDERED: IPRATROPIUM/ALBUTEROL 0.5-2.5 MG/3 ML AMPUL NEB PRN (00:46)
[2019-11-21] MEDS ORDERED: GLUCAGON,HUMAN RECOMB 1 MG INJ IM PRN (00:46)
[2019-11-21] MEDS ORDERED: DEXTROSE 50%-WATER 25 GM/50 ML DISP.SYRIN IV PRN ×2 (00:46)
[2019-11-21] MEDS ORDERED: HYDRALAZINE HCL INJ/PF 20 MG/1 ML SDV IV PRN (00:49)
[2019-11-21] MEDS ORDERED: KETOROLAC TROMETHAMINE INJ/PF 30 MG/1 ML SDV IV PRN (00:49)
[2019-11-21] MEDS ORDERED: INSULIN GLARGINE,HUM.REC.ANLOG 1,000 UNIT/10 ML VIAL SUBCUT ONE (01:00)
[2019-11-21] MEDS ORDERED: CLONIDINE HCL 0.2 MG TABLET PO ONE (01:00)
[2019-11-21] MEDS ORDERED: NORMAL SALINE 1000 ML 1,000 ML IV PRN (01:00)
[2019-11-21] MEDS: CHLORPHENIRAMINE MALEATE 4 MG TABLET PO SCH ×2 (01:36→06:59)
[2019-11-21] MEDS: IPRATROPIUM/ALBUTEROL 0.5-2.5 MG/3 ML AMPUL NEB SCH ×2 (02:58→09:03)
[2019-11-21 05:54] LABS: HEMOGLOBIN 13.6 g/dL (12.0-15.5); MEAN CORPUSCULAR HEMOGLOBIN 29.2 pg (27.0-33.4); MEAN CORPUSCULAR HGB CONC 33.1 g/dL (32.0-36.0); MEAN CORPUSCULAR VOLUME 88 fl (80-97); PLATELET COUNT 241 10^3/uL (150-450); RED BLOOD COUNT 4.65 10^6/uL (3.72-5.28); RED CELL DISTRIBUTION WIDTH 15.7 % (11.5-14.0); WHITE BLOOD COUNT 12.8 10^3/uL (4.0-10.5)
[2019-11-21] MEDS ORDERED: CLONIDINE HCL 0.2 MG TABLET PO SCH ×2 (06:00→14:00)
[2019-11-21] MEDS ORDERED: VANCOMYCIN HCL INJ 1000 MG VIAL IV PRN (06:05)
[2019-11-21 06:08] LABS: ANION GAP 16 (5-19); BLOOD UREA NITROGEN 34 mg/dL (7-20); CALCIUM 9.6 mg/dL (8.4-10.2); CARBON DIOXIDE 19 mmol/L (22-30); CHLORIDE 103 mmol/L (98-107); GLUCOSE 99 mg/dL (75-110); POTASSIUM 3.8 mmol/L (3.6-5.0)
[2019-11-21] MEDS ORDERED: NORMAL SALINE 1000 ML 1,000 ML IV ONE (06:13)
[2019-11-21] MEDS ORDERED: HYDROCORTISONE SOD SUCCINATE INJ/PF 100 MG/2 ML SDV IV ONE (06:15)
[2019-11-21] MEDS ORDERED: VANCOMYCIN HCL 1,250 MG in DEXTROSE 5%-WATER 250 ML IV ONE ×2 (06:15→07:30)
[2019-11-21 06:25] LABS: ARTERIAL BLOOD BASE EXCESS -6.6 mmol/L; ARTERIAL BLOOD FIO2 28%; ARTERIAL BLOOD O2 SATURATION 92.1 % (94-98); ARTERIAL BLOOD PCO2 33.2 mmHg (35-45); ARTERIAL BLOOD PH 7.35 (7.35-7.45)
[2019-11-21] MEDS: HEPARIN SOD (PORCINE) 5,000 UNIT/ML 1 ML VIAL SUBCUT SCH ×3 (06:26→19:01)
--- NOTE | 2019-11-21 06:26 | PDOC H&P ---
History of Present Illness Admission Date/PCP: 11/21/19 00:52 Patient complains of: Shortness of breath History of Present Illness: STEPHANIE VO is a 54 year old female who is an extremely poor historian given acute illness with acute encephalopathy. Past medical history of diabetes, hypertension, COPD, chronic bronchitis, recurrent pneumonia and opiate dependent chronic pain. History is obtained by the record she arrives with 2 weeks of malaise fever and chills poor appetite and sensorium changes. was recently treated for strep throat. Recent changes in medication regiment unclear. Work-up reveals acute renal failure, bandemia and a right upper lobe infiltrate. She received Rocephin, azithromycin and referred to the hospitalist for admission. Past Medical History Cardiac Medical History: Reports: Hypertension Denies: Coronary Artery Disease, Myocardial Infarction Pulmonary Medical History: Reports: Bronchitis, Chronic Obstructive Pulmonary Disease (COPD), Pneumonia Denies: Asthma Neurological Medical History: Denies: Seizures Endocrine Medical History: Reports: Diabetes Mellitus Type 2 GI Medical History: Reports: Hiatal Hernia Musculoskeltal Medical History: Denies: Arthritis Psychiatric Medical History: Reports: Tobacco Dependency Denies: Depression Hematology: Denies: Anemia Past Surgical History Past Surgical History: Reports: Cholecystectomy, Hysterectomy Social History Information Source: Patient, [facility], 1928–1983 Records Lives with: Spouse/Significant other Smoking Status: Unknown if Ever Smoked Electronic Cigarette use?: No Frequency of Alcohol Use: None - Advance Directive Resuscitation Status: Full Code Family History Family History: Other - Unobtainable Parental Family History Reviewed: No - Unobtainable Children Family History Reviewed: No - Unobtainable unobtainable Sibling(s) Family History Reviewed.: No - Unobtainable Medication/Allergy Home Medications: Atenolol [Tenormin 50 mg Tablet] 50 mg PO BID 06/24/17 Clonidine HCl [Catapres 0.3 mg Tablet] 0.3 mg PO QHS 06/24/17 Dexlansoprazole [Dexilant 60 mg Capsule] 60 mg PO DAILY 06/24/17 Duloxetine HCl [Cymbalta 20 mg Capsule.dr] 60 mg PO DAILY 06/24/17 Gabapentin [Neurontin] 800 mg PO QID 06/24/17 Lisinopril/Hydrochlorothiazide [Zestoretic 20-25 mg Tablet] 1 tab PO DAILY 06/24/17 Meloxicam [Mobic] 7.5 mg PO BID 06/24/17 Metformin HCl [Glucophage 500 mg Tablet] 500 mg PO DAILY 06/24/17 Fexofenadine HCl [Allergy Relief] 180 mg PO DAILY 04/03/19 Hydrocodone/Acetaminophen [Lynd 10-325 Tablet] 1 each PO QID 04/03/19 Meclizine HCl [Antivert 25 mg Tablet] 25 mg PO TID PRN 04/03/19 Allergies/Adverse Reactions: succinylcholine [Succinylcholine] Allergy (Severe, Verified 04/06/19 10:28) Coma latex Allergy (Intermediate, Verified 04/06/19 10:28) Skin Redness Review of Systems ROS unobtainable: Due to mental status Physical Exam Vital Signs: Temp Pulse Resp BP Pulse Ox 97.1 F 103 H 22 H 122/72 94 11/21/19 04:00 11/21/19 04:07 11/21/19 04:00 11/21/19 04:00 11/21/19 04:00 Intake & Output 11/19/19 11/20/19 11/21/19 11:59 11:59 11:59 Intake Total 50 Balance 50 Weight 65.317 kg General appearance: PRESENT: disheveled, obese, severe distress, well-developed. ABSENT: no acute distress, cooperative, well-nourished Head exam: PRESENT: atraumatic, normocephalic Eye exam: PRESENT: conjunctiva pink, EOMI, PERRLA - 2 mm pupils and symmetric. ABSENT: scleral icterus Ear exam: PRESENT: normal external ear exam Mouth exam: PRESENT: dry mucosa, tongue midline Neck exam: ABSENT: carotid bruit, JVD, lymphadenopathy, thyromegaly Respiratory exam: PRESENT: decreased breath sounds, prolonged expiratory phas, rales, rhonchi, tachypnea. ABSENT: wheezes Cardiovascular exam: PRESENT: tachycardia. ABSENT: diastolic murmur, rubs, systolic murmur Pulses: PRESENT: normal dorsalis pedis pul, other - Cool extremities Vascular exam: PRESENT: other - Cool extremities GI/Abdominal exam: PRESENT: normal bowel sounds, soft. ABSENT: distended, guarding, mass, organolmegaly, rebound, tenderness Rectal exam: PRESENT: deferred Extremities exam: ABSENT: tenderness, +1 edema Neurological exam: PRESENT: altered, oriented to person, CN II-XII grossly intact. ABSENT: oriented to place Psychiatric exam: PRESENT: appropriate affect, normal mood. ABSENT: homicidal ideation, suicidal ideation Skin exam: PRESENT: mottled, pallor, other - Livedo reticularis. ABSENT: abrasi on, skin tears Results Laboratory Results: 11/21/19 05:32 11/20/19 11/20/19 11/20/19 20:40 20:40 23:05 WBC 8.3 RBC 4.54 Hgb 13.2 Hct 39.8 MCV 88 MCH 29.1 MCHC 33.2 RDW 15.5 H Plt Count 171 Seg Neutrophils % Not Reportable Sodium 136.2 L Potassium 4.0 Chloride 100 Carbon Dioxide 24 Anion Gap 12 BUN 25 H Creatinine 1.21 Est GFR ( Amer) 56 L Glucose 115 H Lactic Acid 2.0 Calcium 9.1 Total Bilirubin 0.7 AST 36 Alkaline Phosphatase 104 Total Protein 7.0 Albumin 4.1 11/21/19 11/21/19 05:32 05:32 WBC RBC Hgb Hct MCV MCH MCHC RDW Plt Count Seg Neutrophils % Not Reportable Sodium 138.0 Potassium 3.8 Chloride 103 Carbon Dioxide 19 L Anion Gap 16 BUN 34 H Creatinine 2.31 H Est GFR ( Amer) 26 L Glucose 99 Lactic Acid Calcium 9.6 Total Bilirubin AST Alkaline Phosphatase Total Protein Albumin Impressions: Chest X-Ray 11/20/19 21:45 IMPRESSION: Patchy airspace disease right upper lobe, likely pneumonia. Assessment and Plan - Diagnosis (1) Pneumonia Is this a current diagnosis for this admission?: Yes Plan: Complicated by COPD, chronic bronchitis, opiate dependence and diabetes. Rocephin, azithromycin initiated in the emergency department. Vancomycin added. Follow-up CBC and blood culture (2) Severe sepsis Is this a current diagnosis for this admission?: Yes Plan: Secondary to pneumonia, complicated by steroid dependent bronchitis/COPD. Patient admits to prednisone use but unclear of recent discontinuation. 3 L normal saline challenge, pressor PRN trial Solu-Cortef, follow-up random cortisol lactic acid, CBC blood and urine culture. (3) Acute encephalopathy Is this a current diagnosis for this admission?: Yes Plan: Secondary #1 complicated by opiate dependence. Trial Narcan as needed (4) Acute renal failure Is this a current diagnosis for this admission?: Yes Plan: Secondary to #1, 3 L normal saline challenge, follow-up chemistry (5) Opiate dependence, continuous Is this a current diagnosis for this admission?: Yes Plan: Narcotics on hold for hypotension, resume as blood pressure tolerates. (6) Tobacco dependence Is this a current diagnosis for this admission?: Yes Plan: Unable to perform counseling, nicotine replacement as needed - Time Time Spent with patient: 25-34 minutes - Inpatient Certification Medical Necessity: Need Close Monitoring Due to Risk of Patient Decompensation
[2019-11-21 06:29] LABS: ABSOLUTE LYMPHOCYTES# (MANUAL) 2.3 10^3/uL (0.5-4.7); ANISOCYTOSIS SLIGHT; BAND NEUTROPHILS % (MANUAL) 7 % (3-5); BASOPHILS % (MANUAL) 0 % (0-2); EOSINOPHILS % (MANUAL) 0 % (0-6); LYMPHOCYTES % (MANUAL) 18 % (13-45); MONOCYTES % (MANUAL) 8 % (3-13); NUCLEATED RED BLOOD CELLS 1 /100 WBC (0); PLATELET COMMENT ADEQUATE; SEGMENTED NEUTROPHILS % (MAN) 67 % (42-78); TOTAL CELLS COUNTED 100
[2019-11-21 07:01] LABS: URINE AMPHETAMINES SCREEN NEGATIVE; URINE BARBITURATES SCREEN NEGATIVE; URINE BENZODIAZEPINES SCREEN NEGATIVE; URINE COCAINE SCREEN NEGATIVE; URINE MARIJUANA (THC) SCREEN NEGATIVE; URINE METHADONE SCREEN NEGATIVE; URINE PHENCYCLIDINE SCREEN NEGATIVE
[2019-11-21 07:38] LABS: TROPONIN I 0.022 ng/mL
[2019-11-21 07:39] LABS: CREATINE KINASE MB < 0.22 ng/mL (<4.55)
[2019-11-21] MEDS ORDERED: NALOXONE HCL INJ/PF 0.4 MG/1 ML SDV ONE ×2 (08:02→15:42)
[2019-11-21] MEDS ORDERED: NOREPINEPHRINE BITARTRATE INJ/PF 4 MG/4 ML SDV IV ONE ×3 (08:39→15:09)
--- NOTE | 2019-11-21 08:39 | Progress Note ---
Provider Note Provider Note: JULIAN COX note. JULIAN KENNY called overhead this morning around 757. Rushed to bedside and assumed role as code chief. Informed by staff that patient had just started eating as suddenly felt short of breath. She spat out the potatoes she was eating. She did not appear to be choking at that time. However she started showing agonal breathing. According to records, chest compressions was started on 752. Initial rhythm after reviewing telemetry was determined to be PEA with preceding bradycardia leading to bradycardia arrest. Patient underwent about 6 rounds of CPR received epinephrine and an amp of bicarb as well as Narcan. Normal saline bolus administered. No shocks administered. All pulse checks noting PEA until ROSC was achieved at 8:05 AM at which time patient was in sinus tachycardia. Intubation performed successfully by aerospace control and warning systems. Vitals were checked. Patient was subsequently transferred to ICU. Labs and EKG will be checked. Patient notably was hypothermic at 94.5 at 7 AM this morning. I have called patient's Ian and informed him of what happened.
[2019-11-21] MEDS: DEXTROSE 5%-WATER 250 ML with NOREPINEPHRINE BITARTRATE 4 MG IV PRN ×6 (08:40→14:44)
[2019-11-21 08:54] LABS: HEMATOCRIT 33.8 % (36.0-47.0); MEAN CORPUSCULAR HEMOGLOBIN 29.2 pg (27.0-33.4); MEAN CORPUSCULAR HGB CONC 30.3 g/dL (32.0-36.0); PLATELET COUNT 201 10^3/uL (150-450); RED BLOOD COUNT 3.51 10^6/uL (3.72-5.28); RED CELL DISTRIBUTION WIDTH 16.7 % (11.5-14.0); WHITE BLOOD COUNT 14.8 10^3/uL (4.0-10.5)
[2019-11-21 09:06] LABS: ALBUMIN 2.7 g/dL (3.5-5.0); ALKALINE PHOSPHATASE 85 U/L (38-126); ASPARTATE AMINO TRANSFERASE 139 U/L (14-36); BILIRUBIN,DIRECT 0.6 mg/dL (0.0-0.4); BILIRUBIN,TOTAL 0.8 mg/dL (0.2-1.3); BLOOD UREA NITROGEN 34 mg/dL (7-20); CALCIUM 8.3 mg/dL (8.4-10.2); CHLORIDE 107 mmol/L (98-107); CREATINE KINASE 46 U/L (30-135); POTASSIUM 4.6 mmol/L (3.6-5.0)
[2019-11-21] MEDS ORDERED: SODIUM BICARBONATE 8.4% INJ 50 MEQ/50 ML DISP.SYRIN ONE ×16 (09:10→21:07)
[2019-11-21 09:17] LABS: CREATINE KINASE MB 0.84 ng/mL (<4.55); TROPONIN I 0.061 ng/mL
[2019-11-21 09:18] LABS: ARTERIAL BLOOD BASE EXCESS -26.9 mmol/L; ARTERIAL BLOOD H2CO3 2.02 mmol/L (1.05-1.35); ARTERIAL BLOOD HCO3 8.5 mmol/L (20-24); ARTERIAL BLOOD O2 SATURATION 96.4 % (94-98); ARTERIAL BLOOD PCO2 67.2 mmHg (35-45); ARTERIAL BLOOD PO2 167.2 mmHg (80-100); ARTERIAL BLOOD TOTAL CO2 10.5 mmol/L (21-25)
[2019-11-21 09:19] LABS: ANION GAP 27 (5-19)
[2019-11-21 09:20] LABS: CARBON DIOXIDE 10 mmol/L (22-30); GLUCOSE 38 mg/dL (75-110); HEMOGLOBIN 10.2 g/dL (12.0-15.5); MEAN CORPUSCULAR VOLUME 96 fl (80-97)
[2019-11-21 09:21] LABS: ARTERIAL BLOOD FIO2 100%
[2019-11-21 09:23] LABS: ARTERIAL BLOOD PH 6.72 (7.35-7.45)
[2019-11-21 09:31] LABS: ABSOLUTE LYMPHOCYTES# (MANUAL) 6.2 10^3/uL (0.5-4.7); ABSOLUTE MONOCYTES # (MANUAL) 0.6 10^3/uL (0.1-1.4); BAND NEUTROPHILS % (MANUAL) 8 % (3-5); BASOPHILS % (MANUAL) 0 % (0-2); EOSINOPHILS % (MANUAL) 0 % (0-6); LYMPHOCYTES % (MANUAL) 42 % (13-45); MONOCYTES % (MANUAL) 4 % (3-13); NUCLEATED RED BLOOD CELLS 3 /100 WBC (0); SEGMENTED NEUTROPHILS % (MAN) 46 % (42-78); TOTAL CELLS COUNTED 100
[2019-11-21 09:35] LABS: ANISOCYTOSIS 1+; BURR CELLS SLIGHT; OVALOCYTES 1+; PLATELET COMMENT ADEQUATE; TOXIC GRANULATION 1+
[2019-11-21] MEDS ORDERED: FLUTICASONE NASAL SPRAY 50 MCG/SPRY 120 SPRAY/16 GM NASL SCH (10:00)
[2019-11-21] MEDS ORDERED: NORMAL SALINE INJ/PF 0.9% 10 ML SDV IV PRN (10:10)
[2019-11-21] MEDS: DEXTROSE 5%-WATER 1000 ML 1,000 ML with SODIUM BICARBONATE 150 MEQ IV PRN ×6 (10:12→18:16)
[2019-11-21] MEDS ORDERED: VASOPRESSIN INJ 20 UNIT/1 ML VIAL ONE (10:15)
[2019-11-21] MEDS ORDERED: HEPARIN SOD (PORCINE) 1,000 UNIT/ML 10 ML VIAL IV ONE (10:22)
[2019-11-21] MEDS ORDERED: HEPARIN SODIUM,PORCINE/D5W 25,000 UNIT/250 ML RTUINJ IV PRN (10:22)
[2019-11-21] MEDS ORDERED: PHENYLEPHRINE HCL INJ/PF 10 MG/1 ML SDV ONE ×4 (10:28→20:05)
[2019-11-21] MEDS: DEXTROSE 5%-WATER 250 ML with PHENYLEPHRINE HCL 40 MG IV PRN ×6 (10:29→15:43)
[2019-11-21] MEDS ORDERED: SODIUM BICARBONATE 8.4% INJ 50 MEQ/50 ML DISP.SYRIN IV ONE ×4 (10:30→18:04)
[2019-11-21 10:52] LABS: ARTERIAL BLOOD BASE EXCESS 5.6 mmol/L; ARTERIAL BLOOD FIO2 100%; ARTERIAL BLOOD H2CO3 2.23 mmol/L (1.05-1.35); ARTERIAL BLOOD HCO3 33.2 mmol/L (20-24); ARTERIAL BLOOD O2 SATURATION 49.2 % (94-98); ARTERIAL BLOOD PH 7.27 (7.35-7.45); ARTERIAL BLOOD TOTAL CO2 35.5 mmol/L (21-25)
[2019-11-21 10:54] LABS: ARTERIAL BLOOD PO2 31.2 mmHg (80-100)
[2019-11-21] MEDS ORDERED: DOBUTAMINE HCL/D5W 500 MG/250 ML RTUINJ IV ONE (10:55)
[2019-11-21 10:57] LABS: HEMATOCRIT 18.9 % (36.0-47.0); MEAN CORPUSCULAR HEMOGLOBIN 28.8 pg (27.0-33.4); MEAN CORPUSCULAR HGB CONC 32.5 g/dL (32.0-36.0); PLATELET COUNT 130 10^3/uL (150-450); RED BLOOD COUNT 2.14 10^6/uL (3.72-5.28); RED CELL DISTRIBUTION WIDTH 15.5 % (11.5-14.0); WHITE BLOOD COUNT 7.9 10^3/uL (4.0-10.5)
[2019-11-21 11:00] LABS: INTERNATIONAL RATION (INR) 3.21
[2019-11-21 11:01] LABS: PARTIAL THROMBOPLASTIN TIME 58.3 SEC (23.5-35.8)
[2019-11-21 11:16] LABS: PROTHROMBIN TIME 33.5 SEC (11.4-15.4)
[2019-11-21 11:36] LABS: APPEARANCE,URINE CLOUDY; BILIRUBIN,URINE NEGATIVE (NEGATIVE); COLOR,URINE AMBER; GLUCOSE, URINE 50 mg/dL (NEGATIVE); KETONES,URINE NEGATIVE (NEGATIVE); LEUKOCYTE ESTERASE,URINE NEGATIVE (NEGATIVE); NITRITE,URINE NEGATIVE (NEGATIVE); PROTEIN,URINE 100 mg/dL (NEGATIVE); URINE SPECIFIC GRAVITY 1.018
--- NOTE | 2019-11-21 11:42 | RADIOLOGY REPORT (SQ) ---
EXAM DESCRIPTION: CHEST SINGLE VIEW IMAGES COMPLETED DATE/TIME: 11/21/2019 8:56 am REASON FOR STUDY: ett placement COMPARISON: Chest films 08/23/2016, 11/20/2019 EXAM PARAMETERS: NUMBER OF VIEWS: One view. TECHNIQUE: Single frontal radiographic view of the chest acquired. RADIATION DOSE: NA LIMITATIONS: None. FINDINGS: LUNGS AND PLEURA: Dense consolidation throughout the right upper lobe, increased compared to 11/20/2019. Worrisome for pneumonia. Remainder of the lungs are grossly clear. No pleural effusion or pneumothorax. MEDIASTINUM AND HILAR STRUCTURES: No masses. Contour normal. HEART AND VASCULAR STRUCTURES: Heart normal in size. Normal vasculature. BONES: No acute findings. HARDWARE: Endotracheal tube tip 3 cm above the kenneth. Nasogastric tube tip and side port in the sto mach. OTHER: No other significant finding. IMPRESSION: Increased right upper lobe airspace disease compared to yesterday Endotracheal tube, nasogastric tube in good positioning TECHNICAL DOCUMENTATION: JOB ID: [id number] 2010 [employer]- All Rights Reserved Reading location - IP/workstation name: [email or web address]
[2019-11-21 11:43] LABS: HEMOGLOBIN 6.2 g/dL (12.0-15.5); MEAN CORPUSCULAR VOLUME 89 fl (80-97)
--- NOTE | 2019-11-21 11:44 | RADIOLOGY REPORT (SQ) ---
EXAM DESCRIPTION: CHEST SINGLE VIEW IMAGES COMPLETED DATE/TIME: 11/21/2019 9:56 am REASON FOR STUDY: Central Line Placement COMPARISON: AP chest 11/21/2019 0830 hours EXAM PARAMETERS: NUMBER OF VIEWS: AP chest 11/21/2019 0951 hours TECHNIQUE: Single frontal radiographic view of the chest acquired. RADIATION DOSE: NA LIMITATIONS: None. FINDINGS: LUNGS AND PLEURA: Persistent right upper lobe consolidation worrisome for pneumonia. Lung s otherwise clear. No pleural effusion or pneumothorax. MEDIASTINUM AND HILAR STRUCTURES: No masses. Contour normal. HEART AND VASCULAR STRUCTURES: Heart normal in size. Normal vasculature. BONES: No acute findings. HARDWARE: Right jugular central line tip superior vena cava. Endotracheal tube tip 2 to 3 cm above t he kenneth. Nasogastric tube tip and side port in the stomach. OTHER: No other significant finding. IMPRESSION: Interval placement of a right jugular central line with the tip in the superior vena cav a. No pneumothorax. TECHNICAL DOCUMENTATION: JOB ID: [id number] 2010 [employer]- All Rights Reserved Reading location - IP/workstation name: [email or web address]
[2019-11-21 11:49] LABS: ARTERIAL BLOOD BASE EXCESS -5.5 mmol/L; ARTERIAL BLOOD H2CO3 1.22 mmol/L (1.05-1.35); ARTERIAL BLOOD HCO3 20.2 mmol/L (20-24); ARTERIAL BLOOD O2 SATURATION 99.7 % (94-98); ARTERIAL BLOOD PCO2 40.4 mmHg (35-45); ARTERIAL BLOOD PH 7.32 (7.35-7.45); ARTERIAL BLOOD PO2 315.1 mmHg (80-100); ARTERIAL BLOOD TOTAL CO2 21.4 mmol/L (21-25)
[2019-11-21 11:49] LABS: ABSOLUTE LYMPHOCYTES# (MANUAL) 3.2 10^3/uL (0.5-4.7); BAND NEUTROPHILS % (MANUAL) 10 % (3-5); BASOPHILS % (MANUAL) 0 % (0-2); EOSINOPHILS % (MANUAL) 0 % (0-6); LYMPHOCYTES % (MANUAL) 41 % (13-45); MONOCYTES % (MANUAL) 0 % (3-13); SEGMENTED NEUTROPHILS % (MAN) 49 % (42-78); TOTAL CELLS COUNTED 100
[2019-11-21 11:50] LABS: ARTERIAL BLOOD FIO2 100%
[2019-11-21 11:53] LABS: ANISOCYTOSIS SLIGHT; OVALOCYTES SLIGHT; PLATELET CLUMPS PRESENT; PLATELET COMMENT DECREASED; POIKILOCYTOSIS SLIGHT
[2019-11-21 12:06] VITALS: BP 66/56
[2019-11-21] MEDS ORDERED: FUROSEMIDE INJ/PF 40 MG/4 ML SDV IV PRN (12:39)
[2019-11-21] MEDS ORDERED: NORMAL SALINE 250 ML IV PRN ×2 (12:39)
[2019-11-21 13:00] LABS: ARTERIAL BLOOD BASE EXCESS -14.5 mmol/L; ARTERIAL BLOOD H2CO3 1.05 mmol/L (1.05-1.35); ARTERIAL BLOOD HCO3 12.7 mmol/L (20-24); ARTERIAL BLOOD O2 SATURATION 95.2 % (94-98); ARTERIAL BLOOD PO2 92.6 mmHg (80-100); ARTERIAL BLOOD TOTAL CO2 13.8 mmol/L (21-25)
[2019-11-21 13:03] LABS: ARTERIAL BLOOD FIO2 60%; ARTERIAL BLOOD PH 7.18 (7.35-7.45)
[2019-11-21] MEDS ORDERED: DEXTROSE 5%-WATER 250 ML with VASOPRESSIN 100 UNIT IV PRN ×2 (13:05)
[2019-11-21] MEDS ORDERED: DOBUTAMINE HCL/D5W 500 MG/250 ML RTUINJ IV PRN (13:09)
[2019-11-21] MEDS ORDERED: FUROSEMIDE INJ/PF 100 MG/10 ML SDV IV ONE (13:15)
[2019-11-21] MEDS ORDERED: HEPARIN SOD (PORCINE) 1,000 UNIT/ML 10 ML VIAL IV PRN (13:22)
--- NOTE | 2019-11-21 13:42 | RADIOLOGY REPORT (SQ) ---
EXAM DESCRIPTION: VENOUS BILATERAL LOWER IMAGES COMPLETED DATE/TIME: 11/21/2019 1:34 pm REASON FOR STUDY: possible PE COMPARISON: None. TECHNIQUE: Dynamic and static ryder scale and color images acquired of both lower extremity venous sy stems. Selected spectral images acquired with additional compression and augmentation maneuvers. Imag es stored on PACS. LIMITATIONS: None. FINDINGS: RIGHT LEG COMMON FEMORAL AND FEMORAL: Normal phasicity, compression and augmentation. No visualized echogenic m aterial on ryder scale. No defects on color images. POPLITEAL: Normal compression and augmentation. No visualized echogenic material on ryder scale. No de fects on color images. CALF VESSELS: Normal compression and augmentation. No visualized echogenic material on ryder scale. No defects on color image. GSV AND SSV: Normal compression. No visualized echogenic material on ryder scale. No defects on color images. ANY DEEP VENOUS INSUFFICIENCY: Not evaluated. ANY EVIDENCE OF POPLITEAL CYST: No. OTHER: No other significant finding. LEFT LEG COMMON FEMORAL AND FEMORAL: Normal phasicity, compression and augmentation. No visualized echogenic m aterial on ryder scale. No defects on color images. POPLITEAL: Normal compression and augmentation. No visualized echogenic material on ryder scale. No de fects on color images. CALF VESSELS: Normal compression and augmentation. No visualized echogenic material on ryder scale. No defects on color images. GSV AND SSV: Normal compression. No visualized echogenic material on ryder scale. No defects on color images. ANY DEEP VENOUS INSUFFICIENCY: Not evaluated. ANY EVIDENCE POPLITEAL CYST: No. OTHER: No other significant finding. IMPRESSION: NO EVIDENCE DVT OR SVT IN EITHER LEG. TECHNICAL DOCUMENTATION: JOB ID: [id number] [employer]- All Rights Reserved Reading location - IP/workstation name: [email or web address]
[2019-11-21] MEDS: ALBUTEROL SULFATE 0.083% NEB 2.5 MG/3 ML AMPUL NEB PRN ×2 (13:51→16:33)
[2019-11-21] MEDS ORDERED: HYDROCORTISONE SOD SUCCINATE INJ/PF 100 MG/2 ML SDV IV SCH (14:00)
--- NOTE | 2019-11-21 14:37 | Operative Report ---
Bedside Procedure - History of Present Illness History of Present Illness: This morbidly obese 54-year-old female transferred to the ICU after PEA arrest. Indication for Procedure: shock Provider: SANDRA MCGILL - Central Line Right Internal jugular Consent obtained: Yes Central line pre-insertion: Sterile PPE donned, Chloraprep applied, Sterile drapes applied Central line lumen type: Triple Anesthetic type: 1% Lidocaine mL's of anesthesia: 5 Ultrasound guided: Yes CM at insertion site: 19 Line secured with sutures: Yes Central line post-insertion: Blood return from lumens, Biopatch applied, Sutu red, Sterile dressing applied, Position confirmed w/ CXR - 1 Number of attempts: 1 Complications: No - Additional Procedures Arterial Line Notes: A time out was performed. Surgical cap, mask with protective eyewear, sterile gown and sterile gloves throughout the procedure. The R inguinal region was prepped using chlorhexidine scrub and draped in sterile fashion using a three quarter sheet drape and sterile towels. The femoral pulse was identified under ultrasound guidance. Anesthesia was achieved using 1% lidocaine. Palpating the femoral pulse throughout the procedure, the introducer needle was inserted into the femoral artery. Arterial blood was withdrawn. The syringe was removed and a guidewire was advanced through the needle into the femoral artery. The needle was exchanged over the wire for an arterial catheter. The wire was removed and the catheter was secured to the skin using a suture. The patient tolerated the procedure without any hemodynamic compromise. At time of procedure completion, the catheter was connected to the social services designee and calibrated. Appropriate waveform and blood pressure tracing was observed. Estimated blood loss is 10 mL.
--- NOTE | 2019-11-21 14:40 | Operative Report ---
Bedside Procedure - History of Present Illness History of Present Illness: This morbidly obese 54-year-old female transferred to the ICU after PEA arrest. I wore a surgical cap, mask with protective eyewear, gown and gloves throughout the procedure. The patient was placed on a nuclear monitoring technician including continuous pulse oximetry. Using a GLideScope and a size 7.5 endotracheal tube with stylet, the patient was intubated on the first attempt. The stylet was removed and cuff balloon was inflated. Appropriate endotracheal tube position was confirmed by direct visualization of vocal cord passage, fogging of the tube, CO2 colometric indicator and symmetric breath sounds. The tube was secured at 25 cm at the lips. Post intubation chest x-ray shows ETT tip about 1 cm from the kenneth. The ETT was pulled back 2 cm. Indication for Procedure: acls Date: 11/21/19 Provider: SANDRA MCGILL
[2019-11-21 15:19] LABS: ARTERIAL BLOOD BASE EXCESS -18.2 mmol/L; ARTERIAL BLOOD H2CO3 0.85 mmol/L (1.05-1.35); ARTERIAL BLOOD HCO3 9.3 mmol/L (20-24); ARTERIAL BLOOD O2 SATURATION 95.4 % (94-98); ARTERIAL BLOOD PCO2 28.3 mmHg (35-45); ARTERIAL BLOOD PO2 97.8 mmHg (80-100); ARTERIAL BLOOD TOTAL CO2 10.2 mmol/L (21-25)
[2019-11-21 15:21] LABS: ARTERIAL BLOOD FIO2 60%
[2019-11-21 15:22] LABS: ARTERIAL BLOOD PH 7.14 (7.35-7.45)
[2019-11-21] MEDS ORDERED: DEXTROSE 5% IV PRN ×4 (15:35→15:36)
[2019-11-21] MEDS ORDERED: NOREPINEPHRINE BITARTRATE IV PRN ×2 (15:35)
[2019-11-21] MEDS ORDERED: WATER IV PRN ×4 (15:35→15:36)
[2019-11-21] MEDS ORDERED: PHENYLEPHRINE HCL IV PRN ×2 (15:36)
[2019-11-21] MEDS: INSULIN LISPRO 100 UNIT/ML 3 ML VIAL SUBCUT SCH ×2 (15:36→15:37)
[2019-11-21] MEDS ORDERED: EPINEPHRINE INJ 1 MG/10 ML DISP.SYRIN ONE ×2 (15:42→17:15)
--- NOTE | 2019-11-21 15:42 | PDOC CRITICAL CARE PROG REPORT ---
General Date:: 11/21/19 ICU Day:: 1 Ventilator Day:: 1 Hospital Day:: 2 Resuscitation Status: Full Code Events in the past 12 to 24 Hours:: This morbidly obese 54-year-old female is seen in consultation at the request of on way for recommendations on further evaluation and management of post CPR resuscitation. The patient transferred to the ICU after experiencing PEA arrest earlier this morning. She required to 20 minutes of ACLS to regain ROSC. Per verbal report, the patient was observed to be eating breakfast. She put food in her mouth and then proceeded to spit it out (no overt aspiration). This was promptly followed by acute respiratory distress and agonal breathing. Telemetry monitoring revealed bradycardia that promptly progressed to PEA arrest. The patient was admitted overnight after presenting to the emergency department with acute encephalopathy. She apparently reported 2 weeks of malaise, fever and chills, poor appetite and altered sensorium. The patient's had rece ntly been treated for strep throat. Initial evaluation revealed an abnormal chest x-ray that was interpreted to be a right upper lobe infiltrate in addition to acute renal failure. She was started on treatment with Rocephin, azithromycin and vancomycin. She was admitted the working diagnosis of severe sepsis secondary to pneumonia. Past MEDICAL HISTORY * Hypertension * COPD/bronchitis * Pneumonia * Type 2 diabetes * Hiatal hernia PAST SURGICAL HISTORY * Cholecystectomy * Hysterectomy SOCIAL HISTORY: Unknown tobacco use status. Denies alcohol consumption. FAMILY HISTORY: Unobtainable/unknown. ALLERGIES: Succinylcholine, latex HOME MEDICATIONS: * Atenolol 50 mg p.o. twice daily * Clonidine 0.3 mg p.o. nightly * Dexilant 60 mg p.o. daily * Duloxetine 60 mg p.o. daily * Gabapentin 800 mg p.o. 4 times daily * Lisinopril/hydrochlorothiazide 20/25 1 tablet p.o. daily * Meloxicam 7.5 mg p.o. twice daily * Metformin 500 mg p.o. daily * Fexofenadine 180 mg p.o. daily * Hydrocodone/acetaminophen 10/325 1 tablet p.o. 4 times daily * Meclizine 25 mg p.o. 3 times daily PRN Review of systems relevant to events:: Unobtainable due to endotracheal intubation and altered mental status Reason for ICU Addmission:: Post CPR resuscitation; mechanical ventilatory support; acute hypoxemic respiratory failure - Medications: Medications reviewed and adjusted accordingly: Yes Vasopressors:: Norepinephrine, vasopressin, phenylephrine Sedation:: None Physical Exam Vital Signs: Temp Pulse Resp BP Pulse Ox 94.5 F L 97 28 H 66/56 L 98 11/21/19 07:00 11/21/19 09:55 11/21/19 12:00 11/21/19 11:09 11/21/19 11:56 Intake & Output 11/20/19 11/21/19 11/22/19 06:59 06:59 06:59 Intake Total 50 Output Total 100 Balance 50 -100 Weight 66.2 kg Weight/Height Weight 66.2 kg Height 1.68 m General appearance: PRESENT: morbidly obese Head exam: PRESENT: atraumatic, normocephalic Eye exam: PRESENT: conjunctiva pink, EOMI, PERRLA - sluggish. ABSENT: scleral icterus Neck exam: ABSENT: carotid bruit, JVD, lymphadenopathy, thyromegaly Respiratory exam: PRESENT: decreased breath sounds, rales, rhonchi, symmetrical Cardiovascular exam: PRESENT: RRR, tachycardia. ABSENT: diastolic murmur, gallop, rubs, systolic murmur Pulses: PRESENT: normal carotid pulses. ABSENT: normal radial pulses, normal femoral pulses GI/Abdominal exam: PRESENT: distended, hypoactive bowel sounds, soft, other - Diffuse purpura. ABSENT: firm, guarding, rebound, tenderness Rectal exam: PRESENT: other - Multiple skin tags. ABSENT: bloody stool, decreased rectal tone, hemorrhoids Gentrourinary exam: PRESENT: indwelling catheter Extremities exam: ABSENT: clubbing, joint swelling, pedal edema, tenderness Neurological exam: PRESENT: altered, other - facial symmetry. No corneal reflex. Synchronous with ventilator. Equivocal Doll's eyes. Cough/gag diminished but still intact. No Babinski. DTRs: hyporeflexic. No reponse to noxious stimuli. Skin exam: PRESENT: dry, mottled - Diffuse purpura, with head to toe distrib ution but most noticeable at the patient's lower back (non-blanchable), which seems to wrap around to the front (where the lesions are blanchable). ABSENT: abrasion Tubes/Lines: PRESENT: Endotracheal Tube, Central Line - Right IJ, Arterial Catheter - Right femoral Laboratory/Radiographs Laboratory Results: 11/21/19 10:45 11/21/19 08:36 11/20/19 11/20/19 11/20/19 20:40 20:40 23:05 WBC 8.3 RBC 4.54 Hgb 13.2 Hct 39.8 MCV 88 MCH 29.1 MCHC 33.2 RDW 15.5 H Plt Count 171 Seg Neutrophils % Not Reportable Carbonic Acid HCO3/H2CO3 Ratio ABG pH ABG pCO2 ABG pO2 ABG HCO3 ABG O2 Saturation ABG Base Excess FiO2 Sodium 136.2 L Potassium 4.0 Chloride 100 Carbon Dioxide 24 Anion Gap 12 BUN 25 H Creatinine 1.21 Est GFR ( Amer) 56 L Glucose 115 H Lactic Acid 2.0 Calcium 9.1 Phosphorus Magnesium Total Bilirubin 0.7 AST 36 Alkaline Phosphatase 104 Ammonia Total Protein 7.0 Albumin 4.1 TSH Urine Color Urine Appearance Urine pH Ur Specific [employer] Urine Protein Urine Glucose (UA) Urine Ketones Urine Blood Urine Nitrite Ur Leukocyte Esterase Urine WBC (Auto) Urine RBC (Auto) 11/21/19 11/21/19 11/21/19 05:32 05:32 05:32 WBC 12.8 H RBC 4.65 Hgb 13.6 Hct 41.0 MCV 88 MCH 29.2 MCHC 33.1 RDW 15.7 H Plt Count 241 Seg Neutrophils % Not Reportable Carbonic Acid HCO3/H2CO3 Ratio ABG pH ABG pCO2 ABG pO2 ABG HCO3 ABG O2 Saturation ABG Base Excess FiO2 Sodium 138.0 Potassium 3.8 Chloride 103 Carbon Dioxide 19 L Anion Gap 16 BUN 34 H Creatinine 2.31 H Est GFR ( Amer) 26 L Glucose 99 Lactic Acid Calcium 9.6 Phosphorus Magnesium Total Bilirubin AST Alkaline Phosphatase Ammonia Total Protein Albumin TSH 0.74 Urine Color Urine Appearance Urine pH Ur Specific [employer] Urine Protein Urine Glucose (UA) Urine Ketones Urine Blood Urine Nitrite Ur Leukocyte Esterase Urine WBC (Auto) Urine RBC (Auto) 11/21/19 11/21/19 11/21/19 06:11 08:36 08:36 WBC 14.8 H RBC 3.51 L Hgb 10.2 L D Hct 33.8 L MCV 96 D MCH 29.2 MCHC 30.3 L RDW 16.7 H Plt Count 201 Seg Neutrophils % Not Reportable Carbonic Acid 1.00 L HCO3/H2CO3 Ratio 18:1 ABG pH 7.35 ABG pCO2 33.2 L ABG pO2 65.0 L ABG HCO3 18.0 L ABG O2 Saturation 92.1 L ABG Base Excess -6.6 FiO2 28% Sodium 143.8 Potassium 4.6 Chloride 107 Carbon Dioxide 10 L* Anion Gap 27 H BUN 34 H Creatinine 2.83 H Est GFR ( Amer) 21 L Glucose 38 L* Lactic Acid Calcium 8.3 L Phosphorus 13.0 H Magnesium 2.4 H Total Bilirubin 0.8 AST 139 H Alkaline Phosphatase 85 Ammonia Total Protein 5.0 L Albumin 2.7 L TSH Urine Color Urine Appearance Urine pH Ur Specific [employer] Urine Protein Urine Glucose (UA) Urine Ketones Urine Blood Urine Nitrite Ur Leukocyte Esterase Urine WBC (Auto) Urine RBC (Auto) 11/21/19 11/21/19 11/21/19 08:36 08:36 09:10 WBC RBC Hgb Hct MCV MCH MCHC RDW Plt Count Seg Neutrophils % Carbonic Acid 2.02 H HCO3/H2CO3 Ratio 4:1 ABG pH 6.72 L* ABG pCO2 67.2 H ABG pO2 167.2 H ABG HCO3 8.5 L ABG O2 Saturation 96.4 ABG Base Excess -26.9 FiO2 100% Sodium Potassium Chloride Carbon Dioxide Anion Gap BUN Creatinine Est GFR ( Amer) Glucose Lactic Acid 13.7 H Calcium Phosphorus Magnesium Total Bilirubin AST Alkaline Phosphatase Ammonia 60.4 H Total Protein Albumin TSH Urine Color Urine Appearance Urine pH Ur Specific [employer] Urine Protein Urine Glucose (UA) Urine Ketones Urine Blood Urine Nitrite Ur Leukocyte Esterase Urine WBC (Auto) Urine RBC (Auto) 11/21/19 11/21/19 11/21/19 10:45 10:45 11:13 WBC 7.9 RBC 2.14 L Hgb 6.2 L D Hct 18.9 L MCV 89 D MCH 28.8 MCHC 32.5 RDW 15.5 H Plt Count 130 L Seg Neutrophils % Not Reportable Carbonic Acid 2.23 H HCO3/H2CO3 Ratio 14:1 ABG pH 7.27 L ABG pCO2 74.0 H* ABG pO2 31.2 L* ABG HCO3 33.2 H ABG O2 Saturation 49.2 L ABG Base Excess 5.6 FiO2 100% Sodium Potassium Chloride Carbon Dioxide Anion Gap BUN Creatinine Est GFR ( Amer) Glucose Lactic Acid Calcium Phosphorus Magnesium Total Bilirubin AST Alkaline Phosphatase Ammonia Total Protein Albumin TSH Urine Color SIMI Urine Appearance CLOUDY Urine pH 5.0 Ur Specific [employer] 1.018 Urine Protein 100 H Urine Glucose (UA) 50 H Urine Ketones NEGATIVE Urine Blood NEGATIVE Urine Nitrite NEGATIVE Ur Leukocyte Esterase NEGATIVE Urine WBC (Auto) 2 Urine RBC (Auto) 2 11/21/19 11:30 WBC RBC Hgb Hct MCV MCH MCHC RDW Plt Count Seg Neutrophils % Carbonic Acid 1.22 HCO3/H2CO3 Ratio 16:1 ABG pH 7.32 L ABG pCO2 40.4 ABG pO2 315.1 H ABG HCO3 20.2 ABG O2 Saturation 99.7 H ABG Base Excess -5.5 FiO2 100% Sodium Potassium Chloride Carbon Dioxide Anion Gap BUN Creatinine Est GFR ( Amer) Glucose Lactic Acid Calcium Phosphorus Magnesium Total Bilirubin AST Alkaline Phosphatase Ammonia Total Protein Albumin TSH Urine Color Urine Appearance Urine pH Ur Specific [employer] Urine Protein Urine Glucose (UA) Urine Ketones Urine Blood Urine Nitrite Ur Leukocyte Esterase Urine WBC (Auto) Urine RBC (Auto) 11/21/19 11/21/19 11/21/19 06:46 06:46 08:36 Creatine Kinase 32 46 CK-MB (CK-2) < 0.22 Troponin I 0.022 11/21/19 08:36 Creatine Kinase CK-MB (CK-2) 0.84 Troponin I 0.061 Impressions: Chest X-Ray 11/21/19 09:40 IMPRESSION: Interval placement of a right jugular central line with the tip in the superior vena cava. No pneumothorax. All labs, radiographs, diagnostic studies and EKGs were personally reviewed: Yes In addition, reports of radiographic and diagnostic studies were read: Yes Assessment and Plan - Diagnosis (1) Acute respiratory failure with hypoxia and hypercapnia Is this a current diagnosis for this admission?: Yes Plan: Titrate vent settings based on ABG results. (2) Multi-organ failure with heart failure Is this a current diagnosis for this admission?: Yes (3) Acute encephalopathy Is this a current diagnosis for this admission?: Yes Plan: Originally presented with acute encephalopathy, perhaps multifactorial. At this point, clearly she has anoxic encephalopathy as well. Contributing factors: Chronic opiate use, hyperammonemia, worsening renal failure, possible underlying infection, hypoglycemia. (4) Anoxic encephalopathy Is this a current diagnosis for this admission?: Yes (5) Cardiogenic shock Is this a current diagnosis for this admission?: Yes Plan: Shock of unclear etiology at this time, likely multifactorial. * The patient was found to be hypoglycemic. * The patient apparently has a history of adrenal insufficiency (unconfirmed at this point) but was given Solu-Cortef this morning. We will continue this for now. * Check SVO2. * 2D echo. * CVP monitoring. * Possible component of sepsis, as the patient did present with leukocytosis and abnormal chest x-ray (although, the wedge-shaped infiltrate is suspicious for pulmonary infarction). With worsening renal failure, the patient will not be able to undergo CTA of the chest. She is too hemodynamically unstable to undergo imaging studies at this time. In light of the physical exam findings, I concern for ongoing retroperitoneal hematoma, making presumptive treatment for venous thromboembolism too dangerous. (6) Abnormal chest x-ray Is this a current diagnosis for this admission?: Yes Plan: The right upper lobe abnormality has a notably wedge-shaped configuration, raising suspicion for possible pulmonary infarction. Nonetheless, continue Rocephin/azithromycin/vancomycin. (7) Normocytic anemia Is this a current diagnosis for this admission?: Yes Plan: Monitor hemoglobin. Transfuse as needed. (8) Lactic acidosis Is this a current diagnosis for this admission?: Yes (9) Hypoglycemia Is this a current diagnosis for this admission?: Yes Plan: Accu-Cheks every 1 hour. No insulin coverage for now. (10) Hyperammonemia Is this a current diagnosis for this admission?: Yes Plan: Lactulose. (11) Acute renal failure Qualifiers: Acute renal failure type: unspecified Qualified Code(s): N17.9 - Acute kidney failure, unspecified Is this a current diagnosis for this admission?: Yes Plan: Avoid nephrotoxic drugs. Renal dosing of medications. (12) Adrenal insufficiency Is this a current diagnosis for this admission?: Yes Plan: Continue Solu-Cortef 100 mg IV every 8 hours. (13) Pneumonia Qualifiers: Pneumonia type: due to unspecified organism Laterality: right Lung location: upper lobe of lung Qualified Code(s): J18.9 - Pneumonia, unspecified organism Is this a current diagnosis for this admission?: Yes Plan: Trach aspirate for Gram stain, C/S. Continue Rocephin/azithromycin/vancomycin. (14) COVID-19 ruled out by laboratory testing Is this a current diagnosis for this admission?: Yes Plan Summary: (Ian Smith [phone]) called. No answer. Critical Time Critical Time (minutes): 180 Level of Care: ICU -: 1. The care of a critical patient is a dynamic process. This note is a customer service representative teller synopsis but static in nature. The timeframe for treatments given in order is not necessarily the actual time these treatments may have been done. 2. This patient requires critical care secondary to ongoing requirements for therapy not offered or safe outside the critical care environment. Transfer to a lower level of care will result in altered life or limb morbidity and mortality. 3. Multidisciplinary rounds completed. 4. ABCDE bundle addressed.
[2019-11-21] MEDS ORDERED: DOPAMINE HCL/DEXTROSE 5%-WATER 800 MG/250 ML RTUINJ IV ONE (15:58)
[2019-11-21] MEDS ORDERED: DOPAMINE HCL/DEXTROSE 5%-WATER 800 MG/250 ML RTUINJ IV PRN (15:58)
[2019-11-21 17:10] LABS: ARTERIAL BLOOD BASE EXCESS -15.7 mmol/L; ARTERIAL BLOOD H2CO3 0.92 mmol/L (1.05-1.35); ARTERIAL BLOOD HCO3 11.3 mmol/L (20-24); ARTERIAL BLOOD O2 SATURATION 89.2 % (94-98); ARTERIAL BLOOD PCO2 30.6 mmHg (35-45); ARTERIAL BLOOD PO2 67.8 mmHg (80-100); ARTERIAL BLOOD TOTAL CO2 12.2 mmol/L (21-25)
--- NOTE | 2019-11-21 17:10 | EKG REPORT ---
SEVERITY:- ABNORMAL ECG - SINUS RHYTHM INCOMPLETE RIGHT BUNDLE BRANCH BLOCK : Confirmed by: Chela Allen MD 21-Nov-2019 17:09:44
[2019-11-21 17:11] LABS: ARTERIAL BLOOD FIO2 60%
[2019-11-21 17:12] LABS: ARTERIAL BLOOD PH 7.18 (7.35-7.45)
[2019-11-21] MEDS: DEXTROSE 5%-WATER 250 ML with EPINEPHRINE/PF 1 MG IV PRN ×6 (17:15→19:15)
--- NOTE | 2019-11-21 17:33 | XCELERA REPORT ---
[address] [address] Transthoracic Echocardiogram Report Name: STEPHANIE VO Age: 54 yrs Gender: Female : 1965 Patient Status: Inpatient Patient Location: ICU^606^A Study Date: 11/21/2019 11:57 AM Height: 66 in Weight: 145 lb BSA: 1.7 m2 Procedure: A two-dimensional transthoracic echocardiogram with color flow and Doppler was performed. The study was technically limited with all images being suboptimal in quality. Images were not obtained from all of the standard acoustic windows due to the limited scope of the study. Reason For Study: shock History: Shock. Ordering Physician: SANDRA MCGILL Performed By: Alexa Auguste Interpretation Summary There is normal left ventricular wall thickness. No 'True apical 2 chamber ' views obtained.Hence cannot comment on the apical and basal inferior ramirez , and the basal and apical anteriorr ramirez,the mid inferior , mid anterior and the rest of the LV ramirez are severely hypokinetic and there is severely reduced LVEF of 0%. Doppler measurements suggest impaired left ventricular relaxation, which is associated with grade I/IV or mild diastolic dysfunction There is no thrombus. cannot assess for ASD,VSD,or PFO. The right ventricle is not well visualized secondary to technical limitations Normal RV size with severely reduced RV systolic function as seen in the subcostal view. The left atrial size is normal. There is no evidence of mitral valve prolapse. There is no vegetation seen on the mitral valve. There is no mitral valve stenosis. There is a mild amount of mitral regurgitation There is no aortic valvular vegetation. There is no aortic valve stenosis No aortic regurgitation is present. There is no tricuspid stenosis. There is a trace to mild amount of tricuspid regurgitation Right ventricular systolic pressure is normal. RVSP is 19 to 24 mm of Hg , with RA mean of 5 to 10. The pulmonic valve is not well visualized. The aortic root is not well visualized but is probably normal size. The inferior vena cava appeared normal and decreased > 50% with respiration (RAP 5-10 mmHg) There is no pericardial effusion. MMode/2D Measurements & Calculations RVDd: 1.9 cm LVIDd: 4.9 cm FS: 7.2 % Ao root diam: 3.0 cm IVSd: 0.98 cm LVIDs: 4.5 cm EDV(Teich): 110.9 ml Ao root area: 7.0 cm2 LVPWd: 0.93 cm ESV(Teich): 93.2 ml LA dimension: 3.1 cm EF(Teich): 16.0 % Doppler Measurements & Calculations MV E max oly: MV P1/2t max oly: Ao V2 max: LV V1 max P.4 cm/sec 125.1 cm/sec 63.1 cm/sec 0.87 mmHg MV P1/2t: 54.9 msec Ao max PG: LV V1 max: MVA(P1/2t): 4.0 cm2 1.6 mmHg 46.8 cm/sec MV dec slope: 667.2 cm/sec2 MV dec time: 0.13 sec MR max oly: PA V2 max: TR max oly: MV P1/2t-pr_phl: 321.4 cm/sec 39.4 cm/sec 190.0 cm/sec 54.9 msec MR max PG: PA max P.62 mmHg TR max P.3 mmHg 14.4 mmHg Left Ventricle The left ventricle is normal in size. There is normal left ventricular wall thickness. No 'True apical 2 chamber ' views obtained.Hence cannot comment on the apical and basal inferior ramirez , and the basal and apical anteriorr ramirez,the mid inferior , mid anterior and the rest of the LV ramirez are severely hypokinetic and there is severely reduced LVEF of 0%. Doppler measurements suggest impaired left ventricular relaxation, which is associated with grade I/IV or mild diastolic dysfunction. There is no thrombus. cannot assess for ASD,VSD,or PFO. Right Ventricle The right ventricle is not well visualized secondary to technical limitations. Normal RV size with severely reduced RV systolic function as seen in the subcostal view. Atria The right atrium is normal. Artifact in the upper RA near the atrial septum. The left atrial size is normal. Mitral Valve There is no evidence of mitral valve prolapse. There is no vegetation seen on the mitral valve. There is no mitral valve stenosis. There is a mild amount of mitral regurgitation. Aortic Valve There is no aortic valvular vegetation. There is no aortic valve stenosis. No aortic regurgitation is present. Tricuspid Valve There is no tricuspid stenosis. There is a trace to mild amount of tricuspid regurgitation. Right ventricular systolic pressure is normal. RVSP is 19 to 24 mm of Hg , with RA mean of 5 to 10. Pulmonic Valve The pulmonic valve is not well visualized. Great Vessels The aortic root is not well visualized but is probably normal size. The inferior vena cava appeared normal and decreased > 50% with respiration (RAP 5-10 mmHg). Effusions There is no pericardial effusion. : SANDRA MCGILL Lakshmi
[2019-11-21 17:55] LABS: D-DIMER 6.33 ug/mL (0.00-0.50)
[2019-11-21] MEDS ORDERED: LACTULOSE SYRUP 20 GM/30 ML UDCUP NG SCH (18:00)
[2019-11-21] MEDS ORDERED: EPINEPHRINE INJ/PF 1 MG/1 ML AMPULE ONE ×3 (18:30→19:28)
[2019-11-21 18:53] LABS: ARTERIAL BLOOD BASE EXCESS -8.8 mmol/L; ARTERIAL BLOOD FIO2 100%; ARTERIAL BLOOD H2CO3 1.42 mmol/L (1.05-1.35); ARTERIAL BLOOD HCO3 18.7 mmol/L (20-24); ARTERIAL BLOOD O2 SATURATION 97.9 % (94-98); ARTERIAL BLOOD PCO2 47.3 mmHg (35-45); ARTERIAL BLOOD PH 7.22 (7.35-7.45); ARTERIAL BLOOD PO2 127.3 mmHg (80-100); ARTERIAL BLOOD TOTAL CO2 20.2 mmol/L (21-25)
[2019-11-21 18:56] LABS: HEMATOCRIT 32.5 % (36.0-47.0); MEAN CORPUSCULAR HEMOGLOBIN 30.1 pg (27.0-33.4); MEAN CORPUSCULAR HGB CONC 32.2 g/dL (32.0-36.0); PLATELET COUNT 107 10^3/uL (150-450); RED BLOOD COUNT 3.49 10^6/uL (3.72-5.28); RED CELL DISTRIBUTION WIDTH 15.8 % (11.5-14.0); WHITE BLOOD COUNT 11.9 10^3/uL (4.0-10.5)
[2019-11-21 19:07] LABS: HEMOGLOBIN 10.5 g/dL (12.0-15.5); MEAN CORPUSCULAR VOLUME 93 fl (80-97)
[2019-11-21 19:13] LABS: ABSOLUTE LYMPHOCYTES# (MANUAL) 5.6 10^3/uL (0.5-4.7); ABSOLUTE MONOCYTES # (MANUAL) 0.7 10^3/uL (0.1-1.4); BAND NEUTROPHILS % (MANUAL) 5 % (3-5); BASOPHILS % (MANUAL) 0 % (0-2); EOSINOPHILS % (MANUAL) 0 % (0-6); LYMPHOCYTES % (MANUAL) 47 % (13-45); MONOCYTES % (MANUAL) 6 % (3-13); NUCLEATED RED BLOOD CELLS 3 /100 WBC (0); SEGMENTED NEUTROPHILS % (MAN) 42 % (42-78); TOTAL CELLS COUNTED 100
[2019-11-21 19:14] LABS: ANISOCYTOSIS SLIGHT; OVALOCYTES SLIGHT; PLATELET COMMENT DECREASED; POIKILOCYTOSIS SLIGHT
[2019-11-21 19:23] LABS: BLOOD UREA NITROGEN 37 mg/dL (7-20); GLUCOSE 294 mg/dL (75-110)
[2019-11-21 19:29] LABS: CARBON DIOXIDE 18 mmol/L (22-30); CHLORIDE 84 mmol/L (98-107)
[2019-11-21 20:38] LABS: PHOSPHORUS 21.7 mg/dL (2.5-4.5)
[2019-11-21 20:39] LABS: ANION GAP 46 (5-19)
[2019-11-21 20:40] LABS: CREATINE KINASE 53697 U/L (30-135)
[2019-11-21 20:42] LABS: CALCIUM 4.2 mg/dL (8.4-10.2); POTASSIUM 7.2 mmol/L (3.6-5.0); TROPONIN I 1.93 ng/mL
[2019-11-21 21:00] LABS: ARTERIAL BLOOD H2CO3 1.73 mmol/L (1.05-1.35); ARTERIAL BLOOD HCO3 18.6 mmol/L (20-24); ARTERIAL BLOOD PCO2 57.5 mmHg (35-45); ARTERIAL BLOOD PO2 75.4 mmHg (80-100); ARTERIAL BLOOD TOTAL CO2 20.3 mmol/L (21-25)
--- NOTE | 2019-11-21 21:03 | RADIOLOGY REPORT (SQ) ---
CLINICAL INDICATION: Hypoxic resp failure s/p code. . TECHNIQUE: Noncontrast spiral axial CT images obtained through chest abdomen and pelvis with multiplanar reconstructions. This exam was performed according to our departmental dose-optimization program, which includes automated exposure control, adjustment of the mA and/or kV according to patient size and/or use of iterative reconstruction techniques. COMPARISON: None. CORRELATION: None. FINDINGS: Chest: The heart is top normal with vascular calcification. No pericardial effusion. No bulky mediastinal adenopathy. Endotracheal tube and nasogastric tube are in satisfactory position The lungs demonstrate dense airspace consolidative change right lower lobe and dependently right upper lobe. Given dependency, aspiration is a consideration. There is mild airspace disease dependently left lower lobe. No significant pleural fluid. No pneumothorax. Detail obscured by motion. Abdomen: The liver is fatty infiltrated.. The gallbladder is surgically absent. The pancreas is of grossly normal contour on this noncontrast examination. There may be subtle peripancreatic inflammatory changes, difficult to assess without contrast and with motion The spleen is unremarkable. The adrenals demonstrate fullness to the left adrenal. Right adrenal is unremarkable. The kidneys measure bilateral hydronephrosis. Mild hydroureter. Mild surrounding inflammatory changes.. There is no evidence of free air. No free fluid. No bulky adenopathy. Abdominal aorta is nonaneurysmal. Pelvis: The bowel is nonobstructed. The bowel is unopacified with oral contrast. Pelvic contents demonstrate Heredia catheter within a decompressed urinary bladder. The appendix is not seen.. Visualized bones demonstrate age-appropriate osteoarthritis. Remote postsurgical change to the lumbar spine. Remote postsurgical change to the cervical spine. Nondisplaced fractures of the right anterior fourth through sixth ribs. Nondisplaced fractures of the left fourth through seventh anterior ribs.. IMPRESSION: Artifact the patient's arms. Imaging is degraded by patient motion, with resultant artifact. The best possible images were obtained. Dense airspace consolidative change right lower lobe dependently right upper lobe. Given dependency, the possibility of aspiration is raised. Endotracheal tube and nasogastric tube are in satisfactory position. Hepatic steatosis. Mild inflammatory changes suspected of the pancreas. Bilateral hydronephrosis model hydroureter with surrounding inflammatory change, the cause for which is not seen. Bilateral rib fractures, presumed secondary to CPR..
[2019-11-21 21:20] LABS: ARTERIAL BLOOD FIO2 100%
[2019-11-21] MEDS ORDERED: INSULIN GLARGINE,HUM.REC.ANLOG 1,000 UNIT/10 ML VIAL SUBCUT SCH (22:00)
[2019-11-21] MEDS ORDERED: CEFTRIAXONE 1 GM/D5W RTU 1 GM/50 ML RTUPB IV SCH (22:00)
[2019-11-21] MEDS ORDERED: AZITHROMYCIN 500 MG in DEXTROSE 5%-WATER 250 ML IV SCH (22:00)
--- NOTE | 2019-11-21 23:17 | Death Summary ---
Summary Date : 11/21/19 Time of :: 21:22 Autopsy: Yes - Family requests autopsy to be done consent obtained Resuscitation Status: Full Code - Final Diagnosis (1) Septic shock Is this a current diagnosis for this admission?: Yes (2) Multisystem organ failure Is this a current diagnosis for this admission?: Yes (3) Lactic acidosis Is this a current diagnosis for this admission?: Yes Hospital Course:: admitted 11/20/2019 after presenting to the emergency department with acute encephalopathy. She apparently reported 2 weeks of malaise, fever and chills, poor appetite and altered sensorium. The patient's had recently been treated for strep throat. Initial evaluation revealed an abnormal chest x-ray that was interpreted to be a right upper lobe infiltrate in addition to acute renal failure. She was started on treatment with Rocephin, azithromycin and vancomycin. She was admitted the working diagnosis of severe sepsis secondary to pneumonia. At 7:57 AM a code blue was called staff stated that patient had just started eating as suddenly felt short of breath. She did not appear to be choking at that time. However she started showing agonal breathing. Went bradycardic leading into PEA arrest chest compressions were started at 7:52 AM. Patient underwent about 6 rounds of epinephrine and an amp of bicarb. Normal saline bolus administered. No shocks administered. All pulse checks noting PEA until ROSC was achieved at 8:05 AM at which time patient was in sinus tachycardia. Intubation performed successfully by bail bonding agent Dr Horner. Patient was subsequently transferred to ICU. She again PEA arrested. 1 amp epinephrine and 6 amps sodium bicarbonate administered along with chest compressions. ROSC in 2 min. She remained acidotic throughout the day requiring multiple amps of bicarb as well as a bicarb drip. She required epi drip levo vaso and dobutamine to achieve a MAP of 65, although her MAP at 7pm dropped to the high 50's. Abdomen distended severe mottling lactate 37.5, she developed what appeared to be Cullens sign and Razo Goncalves's sign and a drop in hemoglobin from 13.[address] chest A/P done and was negative for RP bleed or any intrabdominal process, did show a significant right sided PNA. At 21:04 Patient went asystole and compressions were started she was given 6 rounds of epi and 7 bicarb and never achieved ROSC, family in the waiting room and made aware of situation and decided to stop resuscitative measures, therefore Code was called and patient at 21:22
[2019-11-22] MEDS ORDERED: SODIUM BICARBONATE 8.4% INJ 50 MEQ/50 ML DISP.SYRIN ONE
[2019-11-22] MEDS ORDERED: CALCIUM GLUCONATE 1000 MG/10 ML INJ IV ONE
[2019-11-22] MEDS ORDERED: EPINEPHRINE INJ 1 MG/10 ML DISP.SYRIN ONE
[2019-11-22] MEDS ORDERED: VANCOMYCIN HCL 750 MG in DEXTROSE 5%-WATER 250 ML IV SCH (10:00)
[2019-11-22 10:14] LABS: ARTERIAL BLOOD PH 7.13 (7.35-7.45)
== END 2019-11-22 | disposition left against medical advice (07) | DRG 871 ==
LOC: ER 20:59 → EH 11-21 00:52 → 4W 11-21 03:55 → ICU 11-21 08:23
PROVIDERS: ADMIT Internal Medicine; ATTEND Internal Medicine Critical Care Medicine
PROC: 5A1935Z Respiratory Ventilation, Less than 24 Consecutive Hours (ICD-10-PCS; principal; 2019-11-21)
PROC: 0BH17EZ Insertion of Endotracheal Airway into Trachea, Via Natural or Artificial Opening (ICD-10-PCS; 2019-11-21)
PROC: 30233N1 Transfusion of Nonautologous Red Blood Cells into Peripheral Vein, Percutaneous Approach (ICD-10-PCS; 2019-11-21)
PROC: 03HY32Z Insertion of Monitoring Device into Upper Artery, Percutaneous Approach (ICD-10-PCS; 2019-11-21)
DX: A41.9 Sepsis, unspecified organism (principal); J18.9 Pneumonia, unspecified organism; R65.21 Severe sepsis with septic shock; G93.41 Metabolic encephalopathy; J96.01 Acute respiratory failure with hypoxia; J96.02 Acute respiratory failure with hypercapnia; E87.2 Acidosis; N17.9 Acute kidney failure, unspecified; E27.40 Unspecified adrenocortical insufficiency; J44.0 Chronic obstructive pulmonary disease with (acute) lower respiratory infection; G93.1 Anoxic brain damage, not elsewhere classified; E72.20 Disorder of urea cycle metabolism, unspecified; E11.9 Type 2 diabetes mellitus without complications; I10 Essential (primary) hypertension; G89.29 Other chronic pain; K44.9 Diaphragmatic hernia without obstruction or gangrene; D69.6 Thrombocytopenia, unspecified; E66.01 Morbid (severe) obesity due to excess calories; E16.2 Hypoglycemia, unspecified; F17.210 Nicotine dependence, cigarettes, uncomplicated; Z79.891 Long term (current) use of opiate analgesic; Z79.84 Long term (current) use of oral hypoglycemic drugs; Z88.8 Allergy status to other drugs, medicaments and biological substances; Z88.3 Allergy status to other anti-infective agents; Z91.040 Latex allergy status; Z03.818 Encounter for observation for suspected exposure to other biological agents ruled out
CPT/HCPCS: 31500; 36415; 36430; 36556; 36600; 36620; 71045; 71250; 74176; 80048; 80053; 80307; 81001; 82140; 82533; 82550; 82553; 82803; 82962; 83605; 83690; 83735; 83880; 84100; 84443; 84484; 85025; 85379; 85384; 85610; 85730; 86850; 86900; 86901; 86920; 87040; 87070; 87077; 87150; 87205; 87635; 87880; 92950; 93005; 93010; 93306; 93970; 94002; 94640; 96365; 96367; 99291; 99292; J0171; J0456; J0610; J0696; J1250; J1265; J1644; J1720; J1940; J2310; J2370; J3370; J3490; J7030; J7060; J7620; P9016